=== PATIENT | male | born 1945 | race Caucasian/White ===

== ENCOUNTER 2022-11-02 16:49 | Emergency (ER) | payer MEDICARE, OTHER ==
[2022-11-02 17:03] VITALS: TEMP 98.3
[2022-11-02 19:30] LABS: Basophils # (A) 0.1 k/uL (0-0.2); Basophils % (A) 1 %; Eosinophils # (A) 0.6 k/uL (0-0.7); Eosinophils % (A) 6 %; HCT 36.2 % (39.0-53.0); HGB 11.5 gm/dL (13.0-17.5); Lymphocytes # (A) 2.1 k/uL (1.0-4.8); Lymphocytes % (A) 21 %; MCH 27.8 pg (25.0-35.0); MCHC 31.8 g/dL (31.0-37.0); Mean Platelet Volume 7.8; Monocytes # (A) 0.6 k/uL (0-1.0); Monocytes % (A) 6 %; Neutrophils # (A) 6.2 k/uL (1.3-7.7); Neutrophils % (A) 64 %; Platelet Count 497 k/uL (150-450); RBC 4.13 m/uL (4.30-5.90); RDW 15.4 % (11.5-15.5); WBC 9.7 k/uL (3.8-10.6)
[2022-11-02 19:37] LABS: MCV 87.7 fL (80.0-100.0)
[2022-11-02 19:43] VITALS: PULSE 92; RESP 18
[2022-11-02 19:43] LABS: INR 1.1 (<1.2); Partial Thromboplastin Time 28.1 sec (22.0-30.0); Prothrombin Time 11.2 sec (9.0-12.0)
[2022-11-02 20:06] LABS: ALT 23 U/L (4-49); AST 26 U/L (17-59); African American GFR (CKD) >90 (>60 ml/min/1.73 sqM); Albumin 3.5 g/dL (3.5-5.0); Alkaline Phosphatase 91 U/L (38-126); Anion Gap 10 mmol/L; Blood Urea Nitrogen 10 mg/dL (9-20); Calcium 9.6 mg/dL (8.4-10.2); Carbon Dioxide 28 mmol/L (22-30); Chloride 100 mmol/L (98-107); Glucose 105 mg/dL (74-99); Magnesium 1.8 mg/dL (1.6-2.3); Non-African American GFR(CKD) >90 (>60 ml/min/1.73 sqM); Potassium 4.9 mmol/L (3.5-5.1); Sodium 138 mmol/L (137-145); Total Bilirubin 0.4 mg/dL (0.2-1.3); Total Protein 6.8 g/dL (6.3-8.2)
--- NOTE | 2022-11-02 20:49 | CT ---
EXAMINATION TYPE: CT abdomen pelvis wo con DATE OF EXAM: 11/02/2022 COMPARISON: None HISTORY: nausea, vomiting, constipation x3 weeks CT DLP: 648.6 mGycm Automated exposure control for dose reduction was used. Images obtained from the diaphragm to the floor the pelvis with no contrast. There is subsegmental atelectasis at the lung bases. No pleural effusion. Heart size is normal. No pe ricardial effusion. Thoracic aorta is atheromatous. No pneumothorax. There is some mild fatty infiltration of the liver. Gallbladder is intact. There is small calcified g allstones. Spleen is intact. Stomach is intact. There is no pancreatic mass. There are some subtle hy podense foci in the right lobe of the liver. There is no adrenal mass. Kidneys have normal size. There is 3.7 cm cortical cyst anterior right kidn ey. There are numerous bilateral renal calculi measuring up to 7 mm. No hydronephrosis. Ureters are n ot dilated. Abdominal aorta is atheromatous. Appendix appears normal. There is no mesenteric edema. There are multiple sigmoid diverticula. There is some subtle fat stranding around the proximal sigmoi d colon. The bladder distends smoothly. No internal hernia. No free fluid in the pelvis. There is enl arged prostate that measures 5.4 cm. There is no mesenteric edema. No ascites or free air. No sign of a bowel obstruction. The lumbar vertebrae have fairly normal alignment. No compression fracture. There is some minimal bic oncave changes in the lumbar spine. This is consistent with some osteomalacia. There is a right hip n ailing noted. The pelvic ring is intact. The sacroiliac joints are intact. IMPRESSION: Numerous sigmoid diverticula without evidence of some mild diverticulitis proximal sigmoid colon. Normal appendix. Atherosclerotic vascular disease. Numerous nonobstructing bilateral renal calculi. Multiple hypodense liver lesions. Ultrasound recommended for further evaluation to confirm or exclude cysts.
[2022-11-02] MEDS ORDERED: AMOXIC-POT CLAV 875-125MG 1 EACH TAB PO STA (22:15)
--- NOTE | 2022-11-02 22:15 | ED ---
General Adult HPI - General Chief complaint: Weakness Stated complaint: abd pain/constipation Time Seen by Provider: 11/02/22 18:32 Source: patient, family Mode of arrival: wheelchair Limitations: no limitations - History of Present Illness Initial comments: This patient is a 77-year-old man who presents with complaint that he has not been feeling well lung back to 3 weeks now. He states that he has had some increasing fatigue. He has had some intermittent nausea and some episodes of vomiting. There has been a little bit of intermittent abdominal pain. Patient has not noted fever or chills. No hematemesis or coffee-ground emesis. He has not noted change in bowel movements or urination. Onset/Timin -: week(s) Location: abdomen Quality: dull Consistency: intermittent Improves with: none Worsens with: none Associated Symptoms: nausea/vomiting, weakness Treatments Prior to Arrival: none - Related Data Home Medications Medication Instructions Recorded Confirmed Pregabalin [Lyrica] 50 mg PO Q8H 11/02/22 11/02/22 Previous Rx's Medication Instructions Recorded Amoxic-Pot Clav 875-125Mg 1 tab PO Q12HR 1 Days #14 tab 11/02/22 [Augmentin 875-125] Allergies Allergy/AdvReac Type Severity Reaction Status Date / Time ceftriaxone [From Rocephin] Allergy Anaphylaxis Verified 11/02/22 20:48 ketorolac [From Toradol] Allergy Anaphylaxis Verified 11/02/22 20:48 Review of Systems ROS Statement: Those systems with pertinent positive or pertinent negative responses have been documented in the HPI. ROS Other: All systems not noted in ROS Statement are negative. Constitutional: Reports: weakness. Denies: fever, chills Respiratory: Denies: cough, dyspnea Cardiovascular: Denies: chest pain, palpitations, edema, syncope Gastrointestinal: Reports: abdominal pain, nausea, vomiting. Denies: diarrhea, constipation, hematemesis, melena, hematochezia Genitourinary: Denies: dysuria, hematuria, testicular pain, testicular mass Musculoskeletal: Denies: back pain Skin: Denies: rash Neurological: Denies: headache, weakness Past Medical History Past Medical History: Cancer, GERD/Reflux, Prostate Disorder Additional Past Medical History / Comment(s): diverticulitis History of Any Multi-Drug Resistant Organisms: None Reported Past Surgical History: Joint Replacement Additional Past Surgical History / Comment(s): hip Past Psychological History: No Psychological Hx Reported Smoking Status: Never smoker Past Alcohol Use History: None Reported Past Drug Use History: None Reported General Exam Limitations: no limitations General appearance: alert, in no apparent distress Head exam: Present: atraumatic, normocephalic Eye exam: Present: normal appearance. Absent: scleral icterus, conjunctival injection Neck exam: Present: normal inspection Respiratory exam: Present: normal lung sounds bilaterally. Absent: respiratory distress, wheezes, rales, rhonchi, stridor Cardiovascular Exam: Present: regular rate, normal rhythm, normal heart sounds. Absent: systolic murmur, diastolic murmur, rubs, gallop GI/Abdominal exam: Present: soft, tenderness (Mild left upper tenderness no kwame ound or guarding). Absent: distended, guarding, rebound, rigid, mass, pulsatile mass, hernia Extremities exam: Present: normal inspection, normal capillary refill. Absent: pedal edema, calf tenderness Back exam: Present: normal inspection. Absent: CVA tenderness (R), CVA tenderness (L) Neurological exam: Present: alert Skin exam: Present: warm, dry, intact, normal color. Absent: rash Course Vital Signs 11/02/22 11/02/22 11/02/22 16:57 19:41 22:19 Temperature 98.3 F Pulse Rate 101 H 92 92 Respiratory 20 18 18 Rate Blood Pressure 101/68 113/72 116/65 O2 Sat by Pulse 96 96 100 Oximetry Medical Decision Making - Medical Decision Making This patient is 77-year-old man with some intermittent abdominal symptoms as well as generalized weakness and fatigue going back a couple of weeks. The exam does show some left-sided tenderness more in the upper quadrant. Given this patient had computed tomography scan which does appear to show some mild diverticulitis, by my interpretation. Patient's offered admission but would like to try course of antibiotics. We discussed appropriate further care and follow-up as well as return parameters. Was pt. sent in by a medical professional or institution (, [facility], SENIOR ORACLE ADF DEVELOPER, urgent care, hospital, or [facility]...) When possible be specific @ -[No] Did you speak to anyone other than the patient for history (EMS, parent, family, police, friend...)? What history was obtained from this source @ -[No] Did you review nursing and triage notes (agree or disagree)? Why? @ -[I reviewed and agree with nursing and triage notes] Were old charts reviewed (outside hosp., previous admission, EMS record, old EKG, old radiological studies, urgent care reports/EKG's, [facility] records)? Report findings @ -[No old charts were reviewed] Differential Diagnosis (chest pain, altered mental status, abdominal pain women, abdominal pain men, vaginal bleeding, weakness, fever, dyspnea, syncope, headache, dizziness, GI bleed, back pain, seizure, CVA, palpatations, mental health, musculoskeletal)? @ -[Differential Abdominal Pain Men: Appendicitis, cholecystitis, diverticulosis, ischemic bowel, pancreatitis, hepatitis, UTI, gastroenteritis, AAA, incarcerated hernia, bowel obstruction, constipation, inflammatory bowel, hepatitis, peptic ulcer disease, splenic infarction, perforated viscus, testicular torsion, this is not meant to be an al l-inclusive list EKG interpreted by me (3pts min.). @ -[ X-rays interpreted by me (1pt min.). @ -[None done] CT interpreted by me (1pt min.). @ -As above U/S interpreted by me (1pt. min.). @ -[None done] What testing was considered but not performed or refused? (CT, X-rays, U/S, labs)? Why? @ -[None] What meds were considered but not given or refused? Why? @ -[None] Did you discuss the management of the patient with other professionals (professionals i.e. , PA, SENIOR ORACLE ADF DEVELOPER, lab, RT, psych nurse, social welfare research worker, copier repair technician, teacher, community cultural development officer, immigration case manager)? Give summary @ -[No] Was smoking cessation discussed for >3mins.? @ -[No] Was critical care preformed (if so, how long)? @ -[No] Were there social determinants of health that impacted care today? How? (Homelessness, low income, unemployed, alcoholism, drug addiction, transportation, low edu. Level, literacy, decrease access to med. care, [facility], rehab)? @ -[No] Was there de-escalation of care discussed even if they declined (Discuss DNR or withdrawal of care, Hospice)? DNR status @ -[No] What co-morbidities impacted this encounter? (DM, HTN, Smoking, COPD, CAD, Cancer, CVA, ARF, Chemo, Hep., AIDS, mental health diagnosis, sleep apnea, morbid obesity)? @ -[None] Was patient admitted / discharged? Hospital course, mention meds given and route, prescriptions, significant lab abnormalities, going to OR and other pertinent info. @ -[Discharged Undiagnosed new problem with uncertain prognosis? @ -[No] Drug Therapy requiring intensive monitoring for toxicity (Heparin, Nitro, Insulin, Cardizem)? @ -[No] Were any procedures done? @ -[No] Diagnosis/symptom? @ -[Acute diverticulitis, uncomplicated Acute, or Chronic, or Acute on Chronic? @ -[default] Uncomplicated (without systemic symptoms) or Complicated (systemic symptoms)? @ -[default] Side effects of treatment? @ -[No] Exacerbation, Progression, or Severe Exacerbation? @ -[No] Poses a threat to life or bodily function? How? (Chest pain, [place], PR, pneumonia, PE, COPD, DKA, ARF, appy, cholecystitis, CVA, Diverticulitis, Homicidal, Suicidal, threat to staff... and all critical care pts) @ -[No] - Lab Data Result diagrams: 11/02/22 18:55 11/02/22 18:55 Lab Results 11/02/22 11/02/22 11/02/22 Range/Units 18:55 18:55 18:55 WBC 9.7 (3.8-10.6) k/uL RBC 4.13 L (4.30-5.90) m/uL Hgb 11.5 L (13.0-17.5) gm/dL Hct 36.2 L (39.0-53.0) % MCV 87.7 D (80.0-100.0) fL MCH 27.8 (25.0-35.0) pg MCHC 31.8 (31.0-37.0) g/dL RDW 15.4 (11.5-15.5) % Plt Count 497 H (150-450) k/uL MPV 7.8 Neutrophils % 64 % Lymphocytes % 21 % Monocytes % 6 % Eosinophils % 6 % Basophils % 1 % Neutrophils # 6.2 (1.3-7.7) k/uL Lymphocytes # 2.1 (1.0-4.8) k/uL Monocytes # 0.6 (0-1.0) k/uL Eosinophils # 0.6 (0-0.7) k/uL Basophils # 0.1 (0-0.2) k/uL PT 11.2 (9.0-12.0) sec INR 1.1 (<1.2) APTT 28.1 (22.0-30.0) sec Sodium 138 (137-145) mmol/L Potassium 4.9 (3.5-5.1) mmol/L Chloride 100 (98-107) mmol/L Carbon Dioxide 28 (22-30) mmol/L Anion Gap 10 mmol/L BUN 10 (9-20) mg/dL Creatinine 0.72 (0.66-1.25) mg/dL Est GFR (CKD-EPI)AfAm >90 (>60 ml/min/1.73 sqM) Est GFR (CKD-EPI)NonAf >90 (>60 ml/min/1.73 sqM) Glucose 105 H (74-99) mg/dL Plasma Lactic Acid Mark Anthony (0.7-2.0) mmol/L Calcium 9.6 (8.4-10.2) mg/dL Magnesium 1.8 (1.6-2.3) mg/dL Total Bilirubin 0.4 (0.2-1.3) mg/dL AST 26 (17-59) U/L ALT 23 (4-49) U/L Alkaline Phosphatase 91 (38-126) U/L Troponin I (0.000-0.034) ng/mL Total Protein 6.8 (6.3-8.2) g/dL Albumin 3.5 (3.5-5.0) g/dL TSH 0.834 (0.465-4.680) mIU/L 11/02/22 11/02/22 Range/Units 18:55 18:55 WBC (3.8-10.6) k/uL RBC (4.30-5.90) m/uL Hgb (13.0-17.5) gm/dL Hct (39.0-53.0) % MCV (80.0-100.0) fL MCH (25.0-35.0) pg MCHC (31.0-37.0) g/dL RDW (11.5-15.5) % Plt Count (150-450) k/uL MPV Neutrophils % % Lymphocytes % % Monocytes % % Eosinophils % % Basophils % % Neutrophils # (1.3-7.7) k/uL Lymphocytes # (1.0-4.8) k/uL Monocytes # (0-1.0) k/uL Eosinophils # (0-0.7) k/uL Basophils # (0-0.2) k/uL PT (9.0-12.0) sec INR (<1.2) APTT (22.0-30.0) sec Sodium (137-145) mmol/L Potassium (3.5-5.1) mmol/L Chloride (98-107) mmol/L Carbon Dioxide (22-30) mmol/L Anion Gap mmol/L BUN (9-20) mg/dL Creatinine (0.66-1.25) mg/dL Est GFR (CKD-EPI)AfAm (>60 ml/min/1.73 sqM) Est GFR (CKD-EPI)NonAf (>60 ml/min/1.73 sqM) Glucose (74-99) mg/dL Plasma Lactic Acid Mark Anthony 1.3 (0.7-2.0) mmol/L Calcium (8.4-10.2) mg/dL Magnesium (1.6-2.3) mg/dL Total Bilirubin (0.2-1.3) mg/dL AST (17-59) U/L ALT (4-49) U/L Alkaline Phosphatase (38-126) U/L Troponin I <0.012 (0.000-0.034) ng/mL Total Protein (6.3-8.2) g/dL Albumin (3.5-5.0) g/dL TSH (0.465-4.680) mIU/L Disposition Clinical Impression: Diverticulitis Disposition: HOME SELF-CARE Condition: Good Prescriptions: Amoxic-Pot Clav 875-125Mg [Augmentin 875-125] 1 tab PO Q12HR 1 Days #14 tab Is patient prescribed a controlled substance at d/c from ED?: No Referrals: Volodymyr Benitez MD [Primary Care Provider] - 1-2 days Laxmi Ruiz MD [STAFF PHYSICIAN] - 1-2 days
[2022-11-02 22:28] VITALS: BP 116/65
== END 2022-11-02 22:55 | disposition home or self-care (01) ==
LOC: EC 16:49
DX: K57.30 Diverticulosis of large intestine without perforation or abscess without bleeding (principal); Z88.1 Allergy status to other antibiotic agents; Z88.6 Allergy status to analgesic agent
CPT/HCPCS: 36415; 74176; 80053; 83605; 83735; 84443; 84484; 85025; 85610; 85730; 87040; 93005; 99285

== ENCOUNTER 2023-05-02 08:32 | Emergency (ER) | payer MEDICARE, OTHER ==
[2023-05-02] MEDS ORDERED: SODIUM CHLORIDE 0.9% 1,000 ML IV STA (09:13)
[2023-05-02 09:48] LABS: Basophils # (A) 0.1 k/uL (0-0.2); Basophils % (A) 1 %; Eosinophils # (A) 0.7 k/uL (0-0.7); Eosinophils % (A) 9 %; HCT 41.2 % (39.0-53.0); HGB 13.6 gm/dL (13.0-17.5); Lymphocytes # (A) 1.8 k/uL (1.0-4.8); Lymphocytes % (A) 22 %; MCH 30.4 pg (25.0-35.0); MCHC 33.1 g/dL (31.0-37.0); Mean Platelet Volume 8.2; Monocytes # (A) 0.6 k/uL (0-1.0); Monocytes % (A) 7 %; Neutrophils % (A) 60 %; Platelet Count 210 k/uL (150-450); RBC 4.48 m/uL (4.30-5.90); RDW 14.8 % (11.5-15.5); WBC 8.3 k/uL (3.8-10.6)
[2023-05-02 09:55] LABS: ALT 14 U/L (4-49); AST 19 U/L (17-59); African American GFR (CKD) >90 (>60 ml/min/1.73 sqM); Albumin 3.5 g/dL (3.5-5.0); Alkaline Phosphatase 103 U/L (38-126); Anion Gap 6 mmol/L; Blood Urea Nitrogen 21 mg/dL (9-20); Calcium 9.3 mg/dL (8.4-10.2); Carbon Dioxide 29 mmol/L (22-30); Chloride 107 mmol/L (98-107); Glucose 139 mg/dL (74-99); Magnesium 1.7 mg/dL (1.6-2.3); Non-African American GFR(CKD) 83 (>60 ml/min/1.73 sqM); Sodium 142 mmol/L (137-145); Total Bilirubin 0.4 mg/dL (0.2-1.3); Total Protein 6.2 g/dL (6.3-8.2)
[2023-05-02 09:59] LABS: INR 0.9 (<1.2); Partial Thromboplastin Time 27.3 sec (22.0-30.0)
--- NOTE | 2023-05-02 09:59 | ED ---
General Adult HPI - General Chief complaint: Weakness Stated complaint: Abscess L Side, poss Infection Time Seen by Provider: 05/02/23 08:43 Source: patient, RN notes reviewed, old records reviewed Mode of arrival: ambulatory Limitations: no limitations - History of Present Illness Initial comments: Patient is a 77-year-old male who presents emergency Department complaining of weakness. Brought in by family members. Concern for possible worsening in fection. Currently being treated with clindamycin for a left lower tooth infection that is requiring a root canal. They're worried for possible sepsis. Patient has history of prostate cancer currently not being treated, GERD, diverticulosis. Has no symptoms at this time other than generalized body aches and weakness. No urinary complaints. No diarrhea. No abdominal pain. No nausea or vomiting. No chest pain or shortness of breath. Patient episode this morning where he was more confused which worried the patient's daughter which is why he presents for further evaluation. Confusion has resolved. Currently at his baseline mental status. Not on blood thinners. No recent trauma or falls. Presents for further evaluation at this time. Tooth infection as left lower jaw. Symptoms have been somewhat ongoing since Monday. Is currently Monday. - Related Data Home Medications Medication Instructions Recorded Confirmed Pregabalin [Lyrica] 150 mg PO TID 05/02/23 05/02/23 Sennosides/Docusate Sodium [Senna 2 tab PO BID 05/02/23 05/02/23 Plus 8.6-50 mg Tablet] tiZANidine HCL [Zanaflex] 2 mg PO Q6H PRN 05/02/23 05/02/23 Previous Rx's Medication Instructions Recorded Amoxic-Pot Clav 875-125Mg 1 tab PO Q12HR 10 Days #20 tab 05/02/23 [Augmentin 875-125] Allergies Allergy/AdvReac Type Severity Reaction Status Date / Time ceftriaxone [From Rocephin] Allergy Anaphylaxis Verified 05/02/23 10:33 ketorolac [From Toradol] Allergy Anaphylaxis Verified 05/02/23 10:33 Review of Systems ROS Statement: Those systems with pertinent positive or pertinent negative responses have been documented in the HPI. Review of Systems: CONST: Denies fever EYES: Denies blurry vision ENT: Denies nasal congestion C/V: Denies Chest pain RESP: Denies shortness of breath GI: Denies abdominal pain : Denies dysuria SKIN: Denies rash. MSK: Endorses generalized joint pain NEURO: Denies headache ROS Other: All systems not noted in ROS Statement are negative. Past Medical History Past Medical History: Cancer, GERD/Reflux, Prostate Disorder Additional Past Medical History / Comment(s): diverticulitis History of Any Multi-Drug Resistant Organisms: None Reported Past Surgical History: Joint Replacement Additional Past Surgical History / Comment(s): hip Past Psychological History: No Psychological Hx Reported Smoking Status: Never smoker Past Alcohol Use History: None Reported Past Drug Use History: None Reported General Exam - General Exam Comments Initial Comments: General: Appears in no acute distress. HEAD: Normal with no signs of head trauma. EYES: PERRLA, EOMI, conjunctiva normal, no discharge. Pupils 2-3 mm and equal bilaterally. ENT: Hearing grossly intact, normal oropharynx. No floor the mouth swelling. Minimal gum line swelling with mild erythema around the posterior left inferior molar. No obvious fluctuance palpated. No obvious abscess. Uvula is midline. No posterior oropharyngeal edema. No stridor. RESPIRATORY: Clear breath sounds bilaterally. No wheezes, rales, or rhonchi. C/V: Regular rate and rhythm. S1 and S2 auscultated, no edema, peripheral pulses 2+ and intact throughout ABD: Abd is soft, nontender, nondistended EXT: Normal range of motion, no obvious deformity SKIN: No rashes or lesions observed on exposed skin. NEURO: Alert and oriented x 4. Cranial nerves II-XII intact. No focal sensory or strength deficits. NIH of 0. GCS of 15. Limitations: no limitations Course Vital Signs 05/02/23 05/02/23 05/02/23 08:38 10:03 11:12 Temperature 98.4 F 97.7 F Pulse Rate 96 87 75 Respiratory 20 17 17 Rate Blood Pressure 130/79 119/78 124/70 O2 Sat by Pulse 94 L 95 95 Oximetry 05/02/23 11:52 Temperature Pulse Rate 77 Respiratory 20 Rate Blood Pressure 124/78 O2 Sat by Pulse 97 Oximetry Medical Decision Making - Medical Decision Making Was pt. sent in by a medical professional or institution (, PA, VEHICLE GLASS TECHNICIAN, urgent care, hospital, or prison...) When possible be specific @ -No Did you speak to anyone other than the patient for history (EMS, parent, family, police, friend...)? What history was obtained from this source @ -Patient's daughter who is at bedside who is the primary historian for the events that occurred this morning as well as patient's recent past medical history. Did you review nursing and triage notes (agree or disagree)? Why? @ -I reviewed and agree with nursing and triage notes Were old charts reviewed (outside hosp., previous admission, EMS record, old EKG, old radiological studies, urgent care reports/EKG's, prison records)? Report findings @ -Old charts reviewed. Differential Diagnosis (chest pain, altered mental status, abdominal pain women, abdominal pain men, vaginal bleeding, weakness, fever, dyspnea, syncope, headache, dizziness, GI bleed, back pain, seizure, CVA, palpatations, mental health, musculoskeletal)? @ -Differential Weakness: Hypoglycemia, shock, sepsis, hyponatremia, anemia, infection, ME, ETOH, adverse medicine reaction, overdose, stroke, this is not meant to be an all-inclusive list. EKG interpreted by me (3pts min.). @ -As above X-rays interpreted by me (1pt min.). @ -Chest x-ray reveals no obvious acute cardio pulmonary process. CT interpreted by me (1pt min.). @ -CT brain reveals no obvious acute intracranial process. U/S interpreted by me (1pt. min.). @ -None done What testing was considered but not performed or refused? (CT, X-rays, U/S, labs)? Why? @ -None What meds were considered but not given or refused? Why? @ -None Did you discuss the management of the patient with other professionals (professionals i.e. , PA, VEHICLE GLASS TECHNICIAN, lab, RT, psych nurse, social sciences research scientist, financial aid, teacher, traffic division commanding officer, case worker)? Give summary @ -No Was smoking cessation discussed for >3mins.? @ -No Was critical care preformed (if so, how long)? @ -No Were there social determinants of health that impacted care today? How? (Homelessness, low income, unemployed, alcoholism, drug addiction, transportation, low edu. Level, literacy, decrease access to med. care, snf, rehab)? @ -No Was there de-escalation of care discussed even if they declined (Discuss DNR or withdrawal of care, Hospice)? DNR status @ -No What co-morbidities impacted this encounter? (DM, HTN, Smoking, COPD, CAD, Cancer, CVA, ARF, Chemo, Hep., AIDS, mental health diagnosis, sleep apnea, morbid obesity)? @ -None Was patient admitted / discharged? Hospital course, mention meds given and route, prescriptions, significant lab abnormalities, going to OR and other pertinent info. @ -Based on the patient's presentation and physical exam, I am concerned for drugs weakness of the patient. Occurred be related to his tooth but also possible other infection. We will obtain weakness labs, CT brain, chest x-ray as well as vital signs. Vital signs within acceptable limits. Patient as well as his daughter were in agreement with the plan. Patient be given IV fluids. EKG showed no signs of ischemia.Patient's imaging negative for any obvious acute process. Patient's laboratory studies also within acceptable limits except for borderline UTI with positive leukocyte esterase as well as WBCs. Discussed the workup with patient as well as his daughter. Remainder of the labs within acceptable limits. I do believe it is safe for him to be discharged home but we will switch to a different antibiotic to cover both intraoral infection as well as UTI. Patient patient's arm in agreement this plan. Strict return precautions discussed. Switch to Augmentin. I will provide the patient with a prescription for Augmentin. I instructed the patient to follow up with their PCP in the next 1-3 days. I explained that the patient should return to the emergency department if they experience any worsening symptoms. Strict return precautions were discussed with the patient. The patient expressed understanding of these instructions. I answered all questions that the patient had. The patient was discharged home in good condition with their prescriptions and follow up information. Undiagnosed new problem with uncertain prognosis? @ -No Drug Therapy requiring intensive monitoring for toxicity (Heparin, Nitro, Insulin, Cardizem)? @ -No Were any procedures done? @ -No Diagnosis/symptom? @ -Toothache, UTI Acute, or Chronic, or Acute on Chronic? @ -Acute Uncomplicated (without systemic symptoms) or Complicated (systemic symptoms)? @ -Complicated Side effects of treatment? @ -none Exacerbation, Progression, or Severe Exacerbation] @ -no Poses a threat to life or bodily function? @ -Unlikely - Lab Data Result diagrams: 05/02/23 09:21 05/02/23 09:21 Lab Results 05/02/23 05/02/23 05/02/23 Range/Units 09:21 09:21 09:21 WBC 8.3 (3.8-10.6) k/uL RBC 4.48 (4.30-5.90) m/uL Hgb 13.6 (13.0-17.5) gm/dL Hct 41.2 (39.0-53.0) % MCV 92.0 (80.0-100.0) fL MCH 30.4 (25.0-35.0) pg MCHC 33.1 (31.0-37.0) g/dL RDW 14.8 (11.5-15.5) % Plt Count 210 (150-450) k/uL MPV 8.2 Neutrophils % 60 % Lymphocytes % 22 % Monocytes % 7 % Eosinophils % 9 % Basophils % 1 % Neutrophils # 5.0 (1.3-7.7) k/uL Lymphocytes # 1.8 (1.0-4.8) k/uL Monocytes # 0.6 (0-1.0) k/uL Eosinophils # 0.7 (0-0.7) k/uL Basophils # 0.1 (0-0.2) k/uL PT 10.0 (9.0-12.0) sec INR 0.9 (<1.2) APTT 27.3 (22.0-30.0) sec Sodium (137-145) mmol/L Potassium (3.5-5.1) mmol/L Chloride (98-107) mmol/L Carbon Dioxide (22-30) mmol/L Anion Gap mmol/L BUN (9-20) mg/dL Creatinine (0.66-1.25) mg/dL Est GFR (CKD-EPI)AfAm (>60 ml/min/1.73 sqM) Est GFR (CKD-EPI)NonAf (>60 ml/min/1.73 sqM) Glucose (74-99) mg/dL Plasma Lactic Acid Mark Anthony (0.7-2.0) mmol/L Calcium (8.4-10.2) mg/dL Magnesium (1.6-2.3) mg/dL Total Bilirubin (0.2-1.3) mg/dL AST (17-59) U/L ALT (4-49) U/L Alkaline Phosphatase (38-126) U/L C-Reactive Protein (<1.0) mg/dL Total Protein (6.3-8.2) g/dL Albumin (3.5-5.0) g/dL Urine Color Yellow Urine Appearance Clear (Clear) Urine pH 5.5 (5.0-8.0) Ur Specific Bassett 1.022 (1.001-1.035) Urine Protein Trace H (Negative) Urine Glucose (UA) Negative (Negative) Urine Ketones Negative (Negative) Urine Blood Negative (Negative) Urine Nitrite Negative (Negative) Urine Bilirubin Negative (Negative) Urine Urobilinogen <2.0 (<2.0) mg/dL Ur Leukocyte Esterase Trace H (Negative) Urine RBC 2 (0-5) /hpf Urine WBC 6 H (0-5) /hpf Ur Squamous Epith Cells <1 (0-4) /hpf Urine Mucus Rare H (None) /hpf Influenza Type A (PCR) (Not Detectd) Influenza Type B (PCR) (Not Detectd) RSV (PCR) (Not Detectd) SARS-CoV-2 (PCR) (Not Detectd) 05/02/23 05/02/23 05/02/23 Range/Units 09:21 09:21 09:21 WBC (3.8-10.6) k/uL RBC (4.30-5.90) m/uL Hgb (13.0-17.5) gm/dL Hct (39.0-53.0) % MCV (80.0-100.0) fL MCH (25.0-35.0) pg MCHC (31.0-37.0) g/dL RDW (11.5-15.5) % Plt Count (150-450) k/uL MPV Neutrophils % % Lymphocytes % % Monocytes % % Eosinophils % % Basophils % % Neutrophils # (1.3-7.7) k/uL Lymphocytes # (1.0-4.8) k/uL Monocytes # (0-1.0) k/uL Eosinophils # (0-0.7) k/uL Basophils # (0-0.2) k/uL PT (9.0-12.0) sec INR (<1.2) APTT (22.0-30.0) sec Sodium 142 (137-145) mmol/L Potassium 4.0 (3.5-5.1) mmol/L Chloride 107 (98-107) mmol/L Carbon Dioxide 29 (22-30) mmol/L Anion Gap 6 mmol/L BUN 21 H (9-20) mg/dL Creatinine 0.90 (0.66-1.25) mg/dL Est GFR (CKD-EPI)AfAm >90 (>60 ml/min/1.73 sqM) Est GFR (CKD-EPI)NonAf 83 (>60 ml/min/1.73 sqM) Glucose 139 H (74-99) mg/dL Plasma Lactic Acid Mark Anthony 1.2 (0.7-2.0) mmol/L Calcium 9.3 (8.4-10.2) mg/dL Magnesium 1.7 (1.6-2.3) mg/dL Total Bilirubin 0.4 (0.2-1.3) mg/dL AST 19 (17-59) U/L ALT 14 (4-49) U/L Alkaline Phosphatase 103 (38-126) U/L C-Reactive Protein 2.7 H (<1.0) mg/dL Total Protein 6.2 L (6.3-8.2) g/dL Albumin 3.5 (3.5-5.0) g/dL Urine Color Urine Appearance (Clear) Urine pH (5.0-8.0) Ur Specific Bassett (1.001-1.035) Urine Protein (Negative) Urine Glucose (UA) (Negative) Urine Ketones (Negative) Urine Blood (Negative) Urine Nitrite (Negative) Urine Bilirubin (Negative) Urine Urobilinogen (<2.0) mg/dL Ur Leukocyte Esterase (Negative) Urine RBC (0-5) /hpf Urine WBC (0-5) /hpf Ur Squamous Epith Cells (0-4) /hpf Urine Mucus (None) /hpf Influenza Type A (PCR) Not Detected (Not Detectd) Influenza Type B (PCR) Not Detected (Not Detectd) RSV (PCR) Not Detected (Not Detectd) SARS-CoV-2 (PCR) Not Detected (Not Detectd) - EKG Data -: EKG Interpreted by Me EKG Comments: 12-lead Electrocardiogram Interpretation Note EKG was reviewed and interpreted by myself. 12-lead ECG performed at 0941 is interpreted by me as revealing normal sinus rhythm at a rate of 84 beats per minute. Left axis deviation. ME interval is 160 ms, QRS duration is 95 ms, QTc is 398 ms.. There were no ST or T wave abnormalities to suggest myocardial ischemia or injury. R wave progression across the precordium was satisfactory. By my interpretation this EKG is non-diagnostic for acute ischemia. Disposition Clinical Impression: Toothache, UTI (urinary tract infection) Disposition: HOME SELF-CARE Condition: Good Prescriptions: Amoxic-Pot Clav 875-125Mg [Augmentin 875-125] 1 tab PO Q12HR 10 Days #20 tab Is patient prescribed a controlled substance at d/c from ED?: No Referrals: Nonstaff,Physician [Primary Care Provider] - 1-2 days Time of Disposition: 11:29
[2023-05-02 10:06] VITALS: TEMP 97.7
[2023-05-02 10:15] LABS: Appearance,Urine Clear (Clear); Bilirubin,Urine Negative (Negative); Blood,Urine Negative (Negative); Color,Urine Yellow; Glucose,Urine (UA) Negative (Negative); Ketones,Urine Negative (Negative); Leukocyte Esterase,Urine Trace (Negative); Mucus,Urine Rare /hpf; Nitrite,Urine Negative (Negative); PH, Urine 5.5 (5.0-8.0); Protein,Urine Trace (Negative); RBC,Urine 2 /hpf (0-5); Specific Gravity,Urine 1.022 (1.001-1.035); Squamous Epithelial Cell,Urine <1 /hpf (0-4); Urobilinogen,Urine <2.0 mg/dL (<2.0); WBC,Urine 6 /hpf (0-5)
--- NOTE | 2023-05-02 10:20 | CT ---
EXAMINATION TYPE: CT brain wo con DATE OF EXAM: 05/02/2023 COMPARISON: None HISTORY: confusion CT DLP: 1083.[address] of the brain was performed. The ventricles, basal cisterns and sulci overlying the cerebral convexities demonstrate mild enlargem ent. There is no evidence for intracranial hemorrhage or sulcal effacement. There is decreased attenuation about the periventricular white matter and deep white matter of both c erebral hemispheres, compatible with chronic small vessel ischemia. Differential diagnosis does inclu de demyelination. No mass effects are seen.No midline shift. Osseous calvarium is intact. If symptoms persist consider MRI. IMPRESSION: 1. Age related atrophic and chronic small vessel ischemic change without acute intracranial process s een at this time.
[2023-05-02 10:29] LABS: C Reactive Protein 2.7 mg/dL (<1.0)
--- NOTE | 2023-05-02 10:37 | XR ---
EXAMINATION TYPE: XR chest 2V DATE OF EXAM: 05/02/2023 COMPARISON: NONE HISTORY: Shortness of breath TECHNIQUE: Frontal and lateral views of the chest are obtained. FINDINGS: Scattered senescent parenchymal changes noted. Hyperinflation compatible with COPD. No evidence for infiltrate. No evidence for atelectasis. Heart size is stable. Mediastinal structures are stable and grossly unremarkable. No evidence for hilar prominence. Degenerative changes dorsal spine. IMPRESSION: 1. No evidence for acute pulmonary disease.
[2023-05-02] MEDS ORDERED: AMOXIC-POT CLAV 875-125MG 1 EACH TAB PO STA (11:40)
[2023-05-02 12:01] VITALS: BP 124/78; PULSE 77; RESP 20
== END 2023-05-02 11:53 | disposition home or self-care (01) ==
LOC: EC 08:32
DX: K08.89 Other specified disorders of teeth and supporting structures (principal); N39.0 Urinary tract infection, site not specified; I67.82 Cerebral ischemia; Z88.1 Allergy status to other antibiotic agents; Z88.8 Allergy status to other drugs, medicaments and biological substances; Z20.822 Contact with and (suspected) exposure to COVID-19
CPT/HCPCS: 36415; 70450; 71046; 80053; 81001; 83605; 83735; 85025; 85610; 85730; 86140; 87086; 87636; 93005; 96360; 99285

== ENCOUNTER 2023-09-30 20:29 | Observation (INO) | payer MEDICARE, OTHER ==
[2023-09-30 21:21] LABS: HCT 40.3 % (39.0-53.0); HGB 13.4 gm/dL (13.0-17.5); MCH 31.7 pg (25.0-35.0); MCHC 33.3 g/dL (31.0-37.0); MCV 95.3 fL (80.0-100.0); Mean Platelet Volume 8.1; Platelet Count 237 k/uL (150-450); RBC 4.23 m/uL (4.30-5.90); RDW 13.5 % (11.5-15.5); WBC 9.9 k/uL (3.8-10.6)
[2023-09-30 21:26] LABS: African American GFR (CKD) >90 (>60 ml/min/1.73 sqM); Anion Gap 3 mmol/L; Blood Urea Nitrogen 21 mg/dL (9-20); Calcium 9.3 mg/dL (8.4-10.2); Carbon Dioxide 28 mmol/L (22-30); Chloride 111 mmol/L (98-107); Glucose 198 mg/dL (74-99); Non-African American GFR(CKD) 83 (>60 ml/min/1.73 sqM); Potassium 3.8 mmol/L (3.5-5.1); Sodium 142 mmol/L (137-145)
--- NOTE | 2023-09-30 21:36 | ED ---
General Adult HPI - General Chief complaint: Altered Mental Status Stated complaint: Transfer from [facility] Time Seen by Provider: 09/30/23 20:37 Source: patient, family, RN notes reviewed, old records reviewed Mode of arrival: wheelchair Limitations: no limitations - History of Present Illness Initial comments: Patient is a 78-year-old male who presents emergency department for evaluation by neurology. Was originally going to be a transfer from [facility] however he left AMA with his family and drove via private vehicle rather than EMS to our hospital. Workup at the outside facility was unremarkable. Patient originally presented for a fall at home. Believes he took too much of his normal Flexeril medications when this happens. They were concerned because falls have been more frequent, as well as confusion as well as concern for poss ible worsening dementia. Patient's family member, his daughter is the primary historian for the patient. CT imaging at the outside facility showed no obvious injuries of the head or neck. Patient's laboratory studies were unremarkable. Urinalysis is the only thing that is currently pending. Patient over the last 6 months has been dealing with intermittent tooth infections as well as chronic r ight shoulder pain. Presents for admission for neurology evaluation. Per daughter, patient is below his baseline and seems to have waxing waning symptoms intermittently.Family states that today's episode could have been caused by patient taking extra doses of his Flexeril. - Related Data Home Medications Medication Instructions Recorded Confirmed Pregabalin [Lyrica] 150 mg PO HS 05/02/23 09/30/23 Ibuprofen [Motrin Ib] 200 mg PO TID PRN 09/30/23 09/30/23 Unknown Bp Med 1 tab PO DIRECTED PRN 09/30/23 09/30/23 methocarbamoL [Robaxin-750] 750 mg PO DIRECTED 09/30/23 09/30/23 Allergies Allergy/AdvReac Type Severity Reaction Status Date / Time ceftriaxone [From Rocephin] Allergy Anaphylaxis Verified 09/30/23 21:09 ketorolac [From Toradol] Allergy Anaphylaxis Verified 09/30/23 21:09 Review of Systems ROS Statement: Those systems with pertinent positive or pertinent negative responses have been documented in the HPI. Review of Systems: CONST: Denies fever EYES: Denies blurry vision ENT: Denies nasal congestion C/V: Denies Chest pain RESP: Denies shortness of breath GI: Denies abdominal pain : Denies dysuria SKIN: Denies rash. MSK: Denies joint pain. NEURO: Denies headache ROS Other: All systems not noted in ROS Statement are negative. Past Medical History Past Medical History: Cancer, GERD/Reflux, Prostate Disorder Additional Past Medical History / Comment(s): diverticulitis History of Any Multi-Drug Resistant Organisms: None Reported Past Surgical History: Joint Replacement Additional Past Surgical History / Comment(s): hip Past Psychological History: No Psychological Hx Reported Smoking Status: Current every day smoker Past Alcohol Use History: None Reported Past Drug Use History: None Reported General Exam - General Exam Comments Initial Comments: General: Appears in no acute distress. HEAD: Normal with no signs of head trauma. EYES: PERRLA, EOMI, conjunctiva normal, no discharge. Pulls are 3 mm and equal bilaterally. ENT: Hearing grossly intact, normal oropharynx. RESPIRATORY: Clear breath sounds bilaterally. No wheezes, rales, or rhonchi. C/V: Regular rate and rhythm. S1 and S2 auscultated, no edema, peripheral pulses 2+ and intact throughout ABD: Abd is soft, nontender, nondistended EXT: Normal range of motion, no obvious deformity SKIN: No rashes or lesions observed on exposed skin. NEURO: Alert and oriented x 3 at this time. No obvious focal deficits. Cranial nerves II through XII are intact. Limitations: no limitations Course Vital Signs 09/30/23 20:34 Temperature 97.3 F L Pulse Rate 97 Respiratory 18 Rate Blood Pressure 137/51 O2 Sat by Pulse 96 Oximetry Medical Decision Making - Medical Decision Making Was pt. sent in by a medical professional or institution (, PA, BUSINESS DEAN, urgent care, hospital, or prison...) When possible be specific @ -Transferred via private vehicle from [facility] Did you speak to anyone other than the patient for history (EMS, parent, family, police, friend...)? What history was obtained from this source @ -Patient's daughter is the primary historian for the patient. Did you review nursing and triage notes (agree or disagree)? Why? @ -I reviewed and agree with nursing and triage notes Were old charts reviewed (outside hosp., previous admission, EMS record, old EKG, old radiological studies, urgent care reports/EKG's, prison records)? Report findings @ -Old charts reviewed Differential Diagnosis (chest pain, altered mental status, abdominal pain women, abdominal pain men, vaginal bleeding, weakness, fever, dyspnea, syncope, headache, dizziness, GI bleed, back pain, seizure, CVA, palpatations, mental health, musculoskeletal)? @ -Differential Altered Mental Status: Hypoglycemia, DKA, hypercapnia, ETOH, overdose, CO poisoning, trauma, myxedema coma, HTN encephalopathy, infection, encephalitis, psychosis, intercranial hemorrhage, hepatic encephalopathy, meningitis, CVA, this is not meant to be an all-inclusive list EKG interpreted by me (3pts min.). @ -As above X-rays interpreted by me (1pt min.). @ -X-ray reveals no obvious acute process. CT interpreted by me (1pt min.). @ -None done U/S interpreted by me (1pt. min.). @ -None done What testing was considered but not performed or refused? (CT, X-rays, U/S, labs)? Why? @ -None What meds were considered but not given or refused? Why? @ -None Did you discuss the management of the patient with other professionals (professionals i.e. , PA, BUSINESS DEAN, lab, RT, psych nurse, director social, merchant tailor, teacher, corporate trust officer, telehealth case manager)? Give summary @ -I discussed with Dr. Jarvis who accepted the admission. Was smoking cessation discussed for >3mins.? @ -No Was critical care preformed (if so, how long)? @ -No Were there social determinants of health that impacted care today? How? (Homelessness, low income, unemployed, alcoholism, drug addiction, transportation, low edu. Level, literacy, decrease access to med. care, senior care, rehab)? @ -No Was there de-escalation of care discussed even if they declined (Discuss DNR or withdrawal of care, Hospice)? DNR status @ -No What co-morbidities impacted this encounter? (DM, HTN, Smoking, COPD, CAD, Cancer, CVA, ARF, Chemo, Hep., AIDS, mental health diagnosis, sleep apnea, morbid obesity)? @ -None Was patient admitted / discharged? Hospital course, mention meds given and route, prescriptions, significant lab abnormalities, going to OR and other pertinent info. @ -Patient presents for altered mental status. Seems to be somewhat progressive over the last few months. Had a fall today as well. Was transferred for neurology evaluation. Workup at the outside facility was unremarkable. We will repeat basic labs here as well as obtain a chest x-ray wh ich was not done. We also obtain a urinalysis. Patient's family in agreement this plan. Vital signs within acceptable limits. Patient appears to be near his baseline at this time. Laboratory studies unremarkable. EKG shows no signs of acute ischemia. CT brain, C-spine obtained at the outside facility was unremarkable. No obvious acute injury. Images uploaded to our system. Chest x-ray unremarkable. Patient's family would like the patient evaluated for possible placement for long-term care as they are concerned over his weakness and frequent falls as well as possibly dementia. Patient lives alone. They believe that it is unsafe for him to be discharged home. At this time, patient will be admitted for placement and neuro eval. Neurology consulted. I spoke with Dr. Jarvis of [facility] who accepted the admission. Undiagnosed new problem with uncertain prognosis? @ -No Drug Therapy requiring intensive monitoring for toxicity (Heparin, Nitro, Insulin, Cardizem)? @ -No Were any procedures done? @ -No Diagnosis/symptom? @ -debility, weakness, confusion Acute, or Chronic, or Acute on Chronic? @ -Acute on chronic Uncomplicated (without systemic symptoms) or Complicated (systemic symptoms)? @ -Complicated Side effects of treatment? @ -No Exacerbation, Progression, or Severe Exacerbation? @ -No Poses a threat to life or bodily function? How? (Chest pain, [place], [place], pneumonia, PE, COPD, DKA, ARF, appy, cholecystitis, CVA, Diverticulitis, Homicidal, Suicidal, threat to staff... and all critical care pts) @ -Possibly, yes - Lab Data Result diagrams: 09/30/23 20:55 09/30/23 20:55 Lab Results 09/30/23 09/30/23 Range/Units 20:55 20:55 WBC 9.9 (3.8-10.6) k/uL RBC 4.23 L (4.30-5.90) m/uL Hgb 13.4 (13.0-17.5) gm/dL Hct 40.3 (39.0-53.0) % MCV 95.3 (80.0-100.0) fL MCH 31.7 (25.0-35.0) pg MCHC 33.3 (31.0-37.0) g/dL RDW 13.5 (11.5-15.5) % Plt Count 237 (150-450) k/uL MPV 8.1 Sodium 142 (137-145) mmol/L Potassium 3.8 (3.5-5.1) mmol/L Chloride 111 H (98-107) mmol/L Carbon Dioxide 28 (22-30) mmol/L Anion Gap 3 mmol/L BUN 21 H (9-20) mg/dL Creatinine 0.88 (0.66-1.25) mg/dL Est GFR (CKD-EPI)AfAm >90 (>60 ml/min/1.73 sqM) Est GFR (CKD-EPI)NonAf 83 (>60 ml/min/1.73 sqM) Glucose 198 H (74-99) mg/dL Calcium 9.3 (8.4-10.2) mg/dL - EKG Data -: EKG Interpreted by Me EKG Comments: 12-lead Electrocardiogram Interpretation Note EKG was reviewed and interpreted by myself. 12-lead ECG performed at 2044 is interpreted by me as revealing normal sinus rhythm at a rate of 97 beats per minute. [place] is leftward deviated. OR interval is 146 ms, QRS duration is 90 ms, QTc is 387 ms.. There were no ST or T wave abnormalities to suggest myocardial ischemia or injury. R wave progression across the precordium was satisfactory. By my interpretation this EKG is non-diagnostic for acute ischemi a. Disposition Clinical Impression: Weakness, Debility, Confusion Disposition: ADMITTED IP TO THIS HOSP Condition: Stable Referrals: None,Stated [Primary Care Provider] - 1-2 days Time of Disposition: 22:30
--- NOTE | 2023-09-30 22:13 | XR ---
EXAMINATION TYPE: XR chest 2V DATE OF EXAM: 09/30/2023 9:36 PM CLINICAL INDICATION:Male, 78 years old with history of fall; COMPARISON: Chest radiographs from 05/02/2023 TECHNIQUE: XR chest 2V Frontal and lateral views of the chest. FINDINGS: Lungs/Pleura: There is no evidence of pleural effusion, focal consolidation, or pneumothorax. Pulmonary vascularity: Unremarkable. Heart/mediastinum: Cardiomediastinal silhouette is unremarkable. Musculoskeletal: No acute osseous pathology. IMPRESSION: No acute cardiopulmonary disease/process.
[2023-09-30] MEDS ORDERED: NALOXONE 0.4 MG/ML 1 ML VIAL IV PRN (22:31)
[2023-09-30 23:11] LABS: Appearance,Urine Clear (Clear); Bilirubin,Urine Negative (Negative); Blood,Urine Negative (Negative); Color,Urine Yellow; Glucose,Urine (UA) Negative (Negative); Ketones,Urine Trace (Negative); Leukocyte Esterase,Urine Negative (Negative); Nitrite,Urine Negative (Negative); PH, Urine 5.5 (5.0-8.0); Protein,Urine Trace (Negative); Urobilinogen,Urine <2.0 mg/dL (<2.0)
--- NOTE | 2023-10-01 01:09 | P.HPIM ---
History of Present Illness H&P Date: 09/30/23 Chief Complaint: fall at home 78 year old male with peripheral neuropathy , GERD patient lives alone, he sustained a fall at home, he explains it was accidental as he tripped and fell on his side, without any head injury or passing out, however he could not get up immediately and had to crawl to a phone and call help. he was taken to [facility] where his workup was unremarkable . family suspects that he might have taken too much of his muscle relaxant, but also concerned regarding neurological problem. he left AMA from [facility] and presented to our facility for further neurological evaluation due to concerns of frequent falling and progressive weakness. CT of the head and neck done at [facility] showed no acute intracranial pathology patient denies cough, chest pain , SOB, fever, chills, nausea , vomiting, abd pain , changes in bowel or urinary habits, no focal neuro deficits. review of systems Pertinent positives as noted in HPI. All other systems were reviewed and are negative on exam Constitutional: No acute distress, conversant, pleasant Eyes: Anicteric sclerae, moist conjunctiva, Pupils equal round reactive to light ENMT: NC/AT Oropharynx clear, no erythema, or exudates Neck: Supple, no masses, or JVD No carotid bruits No thyromegaly Lungs: Clear to auscultation Clear to percussion Normal respiratory effort, no accessory muscle use Cardiovascular: Heart regular in rate and rhythm, No murmurs, gallops, or rubs No peripheral edema Abdominal: Soft Nontender, no guarding, rebound or rigidity Abdomen moving with respiration Normoactive bowel sounds Extremities: No digital cyanosis No clubbing Pedal pulses intact and symmetrical Radial pulses intact and symmetrical No calf tenderness Psychiatric: Alert and oriented to person, place and time Appropriate affect Neuro Muscles Strength 4/5 in all 4 extremities Sensation to light touch grossly present throughout Cranial nerves II-XII grossly intact Past Medical History Past Medical History: Cancer, GERD/Reflux, Prostate Disorder Additional Past Medical History / Comment(s): diverticulitis History of Any Multi-Drug Resistant Organisms: None Reported Past Surgical History: Joint Replacement Additional Past Surgical History / Comment(s): hip Past Psychological History: No Psychological Hx Reported Smoking Status: Current every day smoker Past Alcohol Use History: None Reported Past Drug Use History: None Reported Medications and Allergies Home Medications Medication Instructions Recorded Confirmed Type Pregabalin [Lyrica] 150 mg PO HS 09/26/23 02/24/24 History Ibuprofen [Motrin Ib] 200 mg PO TID PRN 09/30/23 09/30/23 History Unknown Bp Med 1 tab PO DIRECTED PRN 09/30/23 09/30/23 History methocarbamoL [Robaxin-750] 750 mg PO DIRECTED 09/30/23 09/30/23 History Allergies Allergy/AdvReac Type Severity Reaction Status Date / Time ceftriaxone [From Rocephin] Allergy Anaphylaxis Verified 09/30/23 21:09 ketorolac [From Toradol] Allergy Anaphylaxis Verified 09/30/23 21:09 Physical Exam Vitals: Vital Signs Temp Pulse Pulse Resp BP BP Pulse Ox 09/30/23 23:38 98.1 F 84 20 152/78 96 09/30/23 20:34 97.3 F L 97 18 137/51 96 Intake and Output 09/30/23 09/30/23 10/01/23 14:59 22:59 06:59 Other: Weight 83.915 kg Results CBC & Chem 7: 09/30/23 20:55 09/30/23 20:55 Labs: Abnormal Lab Results - Last 24 Hours (Table) 09/30/23 09/30/23 09/30/23 Range/Units 20:55 20:55 22:30 RBC 4.23 L (4.30-5.90) m/uL Chloride 111 H (98-107) mmol/L BUN 21 H (9-20) mg/dL Glucose 198 H (74-99) mg/dL Urine Protein Trace H (Negative) Urine Ketones Trace H (Negative) Assessment and Plan Assessment: 78 year old male with peripheral neuropathy , GERD , coming in after sustaining an accidental fall at home without head injury , no passing out, patient is not on any blood thinners or antiplatelets. denies any associated SOB chest pain or palpitations. he had his initial evaluation at [facility] which was unremarkable, then left AMA and presented to our facility for neuro evaluation I discussed the case with ED doc and I accepted the admission under observation for neurological evaluation with anticipated length of stay < 2 midnights accidental fall at home , recurrent falls. generalized weakness fall precautions PT / OT eval neuro checks CT head and neck done at [facility] no acute pathology monitor vital signs gentle IVF hydration with normal saline 130 cc per hour peripheral neuropathy resume lyrica home meds blood work unremarkable Hgb 13.4 , WBC 9.9 Na 142, K 3.8 , BUN 21, Cr 0.8 CXR no acute pathology EKG no acute ST changes full code DVT PPX heparin sc tid 5000 units protonix 40 mg po daily
[2023-10-01] MEDS: SODIUM CHLORIDE 0.9% 1,000 ML IV SCH (01:11)
[2023-10-01] MEDS: PREGABALIN 75 MG CAP PO SCH (01:11)
[2023-10-01] MEDS: methocarbamoL 750 MG TAB PO PRN (02:32)
[2023-10-01 07:21] LABS: Basophils # (A) 0.1 k/uL (0-0.2); Basophils % (A) 1 %; Eosinophils # (A) 0.6 k/uL (0-0.7); Eosinophils % (A) 7 %; HCT 37.7 % (39.0-53.0); HGB 12.8 gm/dL (13.0-17.5); Lymphocytes # (A) 2.3 k/uL (1.0-4.8); Lymphocytes % (A) 29 %; MCH 32.9 pg (25.0-35.0); MCHC 34.1 g/dL (31.0-37.0); MCV 96.7 fL (80.0-100.0); Mean Platelet Volume 7.8; Monocytes # (A) 0.5 k/uL (0-1.0); Monocytes % (A) 7 %; Neutrophils # (A) 4.3 k/uL (1.3-7.7); Neutrophils % (A) 54 %; Platelet Count 248 k/uL (150-450); RDW 13.6 % (11.5-15.5)
[2023-10-01] MEDS: HEPARIN SODIUM,PORCINE 5,000 UNIT/ML 1 ML VIAL SQ SCH (07:33)
[2023-10-01] MEDS: PANTOPRAZOLE 40 MG TABLET PO SCH (07:33)
[2023-10-01 08:06] LABS: African American GFR (CKD) >90 (>60 ml/min/1.73 sqM); Anion Gap 3 mmol/L; Blood Urea Nitrogen 20 mg/dL (9-20); Calcium 8.7 mg/dL (8.4-10.2); Carbon Dioxide 26 mmol/L (22-30); Chloride 112 mmol/L (98-107); Glucose 127 mg/dL (74-99); Non-African American GFR(CKD) 87 (>60 ml/min/1.73 sqM); Potassium 3.8 mmol/L (3.5-5.1); Sodium 141 mmol/L (137-145)
--- NOTE | 2023-10-01 10:40 | XR ---
EXAMINATION TYPE: XR cervical spine comp DATE OF EXAM: 10/01/2023 10:19 AM CLINICAL INDICATION:Male, 78 years old with history of shoulder, neck pain; PHH COMPARISON: None TECHNIQUE: The cervical spine was imaged in frontal, lateral, odontoid and bilateral oblique. FINDINGS: The osseous structures show normal alignment without evidence of an acute fracture. There are osteoph ytes noted throughout the cervical spine on the anterior and lateral aspects of the vertebral bodies. The intervertebral disk spaces are narrowed at multiple levels. Pedicles are intact. Soft tissues a re within normal limits. The odontoid appears intact. No femoral stenosis worse at C5-C7 bilaterally with at least mild to moderate. IMPRESSION: 1. No fracture or dislocation. 2. Moderate degenerative disc disease changes of the cervical spine.
--- NOTE | 2023-10-01 10:40 | XR ---
EXAMINATION TYPE: XR shoulder complete RT DATE OF EXAM: 10/01/2023 10:19 AM CLINICAL INDICATION:Male, 78 years old with history of shoulder, neck pain; PHH COMPARISON: None TECHNIQUE: XR shoulder complete RT; shoulder was examined in AP, internally rotated and scapular Y p rojections. FINDINGS: No evidence of acute osseous pathology, joint dislocation, or soft tissue swelling. Mild/moderate deg enerative change of the AC and glenohumeral joints. IMPRESSION: 1. No acute osseous pathology. 2. Mild/moderate degenerative change of the AC and glenohumeral joints.
--- NOTE | 2023-10-01 12:51 | P.PN ---
Subjective Progress Note Date: 10/01/23 Pt c/o right shoulder an dneck pain today. Pending PT/OT. Gen: In NAD, non-toxic HEENT: normocephalic, atraumatic, hearing acuity is intant, mucous membranes moist CVS: perfusing all extremities well, no pitting edema, Respiratory: symmetric chest expansion, no accessory muscle use, GI: soft, NTTP, ND, : no suprapubic tenderness, no CVA tenderness MSK/Derm: no rashes, cyanosis, tenderness to palpation of right shoulder Neuro: CN II-XII intact, no motor weakness, Psych: cooperative, euthymic mood, judgment and insight is intact Hospital course: 78 year old male with peripheral neuropathy , GERD presented after a fall at home. CT of the head and neck done at [facility] showed no acute intracranial pathology. Assessment/plan Accidental fall at home , recurrent falls. Generalized weakness fall precautions PT / OT eval neuro checks CT head and neck done at [facility] no acute pathology monitor vital signs gentle IVF hydration with normal saline 130 cc per hour Right shoulder x-ray ordered Cervical spine x-ray ordered Peripheral neuropathy resume lyrica home meds full code DVT PPX heparin sc tid 5000 units protonix 40 mg po daily Objective - Vital Signs Vital signs: Vital Signs Temp 98.7 F 10/01/23 08:00 Pulse 79 10/01/23 08:00 Resp 15 10/01/23 08:00 BP 158/87 10/01/23 08:00 Pulse Ox 95 10/01/23 08:00 FiO2 Intake & Output 09/30/23 10/01/23 10/01/23 18:59 06:59 18:59 Intake Total 1010 120 Output Total 250 Balance 1010 -130 Weight 83.915 kg Intake: Intake, IV Titration 650 Amount Sodium Chloride 0.9% 1, 650 000 ml @ 130 mls/hr IV . [id number] [facility] Rx#:[id number] Oral 360 120 Output: Urine 250 Other: # Voids 1 - Labs CBC & Chem 7: 10/01/23 06:23 10/01/23 06:23 Labs: Abnormal Lab Results - Last 24 Hours (Table) 09/30/23 09/30/23 09/30/23 Range/Units 20:55 20:55 22:30 RBC 4.23 L (4.30-5.90) m/uL Hgb (13.0-17.5) gm/dL Hct (39.0-53.0) % Chloride 111 H (98-107) mmol/L BUN 21 H (9-20) mg/dL Glucose 198 H (74-99) mg/dL Urine Protein Trace H (Negative) Urine Ketones Trace H (Negative) 10/01/23 10/01/23 Range/Units 06:23 06:23 RBC 3.90 L (4.30-5.90) m/uL Hgb 12.8 L (13.0-17.5) gm/dL Hct 37.7 L (39.0-53.0) % Chloride 112 H (98-107) mmol/L BUN (9-20) mg/dL Glucose 127 H (74-99) mg/dL Urine Protein (Negative) Urine Ketones (Negative)
--- NOTE | 2023-10-01 14:59 | P.CNNES ---
History of Present Illness Consult date: 10/01/23 Reason for Consult: Progressive dementia and confusion History of Present Illness: The patient is a 78-year-old male who was seen in neurologic consultation on October 01, 2023, in collaboration with Sheryl Rios, via teleneurology. History is obtained from review of the chart. It appears that the patient has been following, per report more frequently. Patient reportedly has a diagnosis of peripheral neuropathy and takes Lyrica. According to the emergency department note, patient's daughter is concerned that the patient may have taken an extra dose of his Flexeril, resulting in his most recent fall. The patient was reportedly unable to get up from the floor and crawled to the phone. 911 transported the patient to [facility] emergency department. Patient was reportedly worked up with a negative head CT. He left AMA, with family and drove to the emergency department at [facility]. Family wants him seen by a neuro logist. They feel that he is getting progressively worse regarding memory and ambulation. According to the patient's, he lost his balance while in the bathroom. He fell to the floor and was reportedly unable to get up. Patient has some difficulty relating the story. He denies hitting his head. He denies loss of consciousness. The patient's daughter presents to the room later during the examination. She says that he has been following frequently. He initially had a fall back in August 2022 at which time he broke his right femur. He underwent surgery and went to rehab. He was eventually discharged from rehab to her house. He has had several other falls since that time. The patient reportedly falls backward and falls forward. He reportedly had a fall about 4 weeks ago on his porch. At that time he injured his right shoulder. The patient's daughter also reports that because of the injury to his shoulder, the patient has not been able to brush his teeth and so therefore has developed a tooth infection. The patient has significant pain and is apparently taking Lyrica as well as Flexeril. The patient's daughter wonders if either of these medications are affecting the patient's memory and/or ability to ambulate. The patient reports a history of peripheral neuropathy for which she takes the Lyrica. He says this was prescribed to him, many years ago. He states that he takes Lyrica every 8 hours. He also reports taking Flexeril every 8 hours. In addition to these 2 medications, the patient takes Motrin every 6-8 hours as needed for pain. In reviewing the patient's listed home medications, it only reports Lyrica to be prescribed at once daily at bedtime. According to the patient's daughter, he has been having significant pain and that does not want to get out of the chair or bed, because of the significant pain. He is apparently not taking care of himself, because of the pain. The daughter reports the patient to have a shuffling gait. The patient himself denies headache, vision changes, difficulty with speech and swallowing. He does report numbness in his feet which is reportedly "longstanding". Patient also reports difficulty with balance. There is no history of diabetes mellitus. Past Medical History Past Medical History: Cancer, GERD/Reflux, Prostate Disorder Additional Past Medical History / Comment(s): diverticulitis, peripheral neuropathy History of Any Multi-Drug Resistant Organisms: None Reported Past Surgical History: Joint Replacement Additional Past Surgical History / Comment(s): hip Past Psychological History: No Psychological Hx Reported Smoking Status: Current every day smoker Past Alcohol Use History: None Reported Past Drug Use History: None Reported Medications and Allergies Home Medications Medication Instructions Recorded Confirmed Type Pregabalin [Lyrica] 150 mg PO HS 05/02/23 09/30/23 History Ibuprofen [Motrin Ib] 200 mg PO TID PRN 09/30/23 09/30/23 History Unknown Bp Med 1 tab PO DIRECTED PRN 09/30/23 09/30/23 History methocarbamoL [Robaxin-750] 750 mg PO DIRECTED 09/30/23 09/30/23 History Allergies Allergy/AdvReac Type Severity Reaction Status Date / Time ceftriaxone [From Rocephin] Allergy Anaphylaxis Verified 09/30/23 21:09 ketorolac [From Toradol] Allergy Anaphylaxis Verified 09/30/23 21:09 Physical Examination - Vital Signs Vital Signs: Vital Signs Temp Pulse Pulse Resp BP BP BP 10/01/23 08:00 98.7 F 79 15 158/87 10/01/23 01:15 98.0 F 84 18 156/84 09/30/23 23:38 98.1 F 84 20 152/78 09/30/23 20:34 97.3 F L 97 18 137/51 Pulse Ox 10/01/23 08:00 95 10/01/23 01:15 94 L 09/30/23 23:38 96 09/30/23 20:34 96 Intake and Output 09/30/23 10/01/23 10/01/23 22:59 06:59 14:59 Intake Total 1010 120 Output Total 250 Balance 1010 -130 Intake: Intake, IV Titration 650 Amount Sodium Chloride 0.9% 1, 650 000 ml @ 130 mls/hr IV . Q7H42M [facility] Rx#:[id number] Oral 360 120 Output: Urine 250 Other: # Voids 1 Weight 83.915 kg General: Patient is well-nourished, well-developed and in no acute distress HEENT: Head is atraumatic, normocephalic. Fundus not visualized. There is no scleral icterus. Mucous membranes are moist. Neck: Supple without carotid bruits Heart: Regular rate and rhythm Lungs: No shortness of breath or wheezing Extremities: Without edema Neurological examination Mental status: The patient is awake, alert and oriented to his name, date of , age, location and current year. The patient is not oriented to the current month. Her speech is clear. There is no dysarthria or aphasia. The patient's speech is slightly hypophonic. He has a normal blink rate. There is no facial masking. Cranial nerves: Pupils are equal at 3 mm, round and reactive to light. Visual nieto are full to confrontation. Extraocular movements are intact, with ocular dysmetria. There is no nystagmus. Facial sensation is intact. There is no facial asymmetry. Hearing is grossly intact. Uvula and palate are midline. Shoulder shrug is symmetric. Tongue protrudes midline. Motor: Strength is 5/5 throughout. Deltoid strength is not assessed secondary to right shoulder injury. Right hip flexor strength 4/5. Sensation: Grossly intact to light touch throughout. There is no extinction with double simultaneous stimulation. Proprioception is intact at the great toes bilaterally Coordination: Heczqn-nb-hkeh, rapid alternating movements and wosh-ht-tpir testing are intact. Deep tendon reflexes: 2+/4+ in the bilateral upper extremities. Lower extremity reflexes are absent. Plantar responses are flexor bilaterally. Gait: Not assessed Results - Laboratory Findings CBC and BMP: 10/01/23 06:23 10/01/23 06:23 Abnormal Lab Findings: Abnormal Labs 09/30/23 09/30/23 09/30/23 20:55 20:55 22:30 RBC 4.23 L Hgb Hct Chloride 111 H BUN 21 H Glucose 198 H Urine Protein Trace H Urine Ketones Trace H 10/01/23 10/01/23 06:23 06:23 RBC 3.90 L Hgb 12.8 L Hct 37.7 L Chloride 112 H BUN Glucose 127 H Urine Protein Urine Ketones Assessment and Plan Assessment: 1. Frequent falls in a 78-year-old male with history of peripheral neuropathy, reported shuffling gait and ataxia. The patient's neurological examination is not consistent with Parkinson's disease. There is no evidence of ataxia on examination. Etiology is possibly multifactorial: Medication effect, peripheral neuropathy, slight right leg weakness 2. Possible memory loss Plan: 1. Will check labs for causes of peripheral neuropathy 2. Physical therapy evaluation and treatment 3. Consider care management consultation regarding safe discharge plan 4. Daughter and patient were advised to follow-up with a neurologist, outpatient for further evaluation of neuropathy, memory and ataxia Time with Patient: Greater than 30 (60 minutes were spent caring for this patient today including, obtaining history, examining the patient, interacting with patient's daughter, reviewing imaging, chart documentation, labs, placing orders and creating this note)
[2023-10-01] MEDS ORDERED: PREGABALIN 75 MG CAP PO SCH (21:00)
[2023-10-01 22:56] LABS: Albumin 3.5 g/dL (3.8-4.9); Protein, Total 5.5 g/dL (6.2-8.2)
[2023-10-02] MEDS: ACETAMINOPHEN TAB 325 MG TAB PO PRN (00:38)
[2023-10-02] MEDS: CYANOCOBALAMIN 500 MCG TAB PO SCH (10:42)
[2023-10-02] MEDS: LOSARTAN 25 MG TAB PO SCH (12:36)
--- NOTE | 2023-10-02 13:01 | P.CNOR ---
History of Present Illness - [facility] Consult date: 10/02/23 Consult reason: joint pain (Right shoulder pain, right arm weakness) History of present illness: The patient is a 78-year-old male who presented to the emergency department for evaluation by neurology. He was admitted to [facility] after sustaining a fall at home. He states he fell 2 days ago. Orthopedics was consulted for further evaluation of his right shoulder pain. He states that he is very weak on the right side and unable to lift his arm up due to pain. The patient is also complaining of right elbow pain. X-rays of the right shoulder reveal glenohumeral and AC joint osteoarthritis and no acute fracture. He denies any numbness or tingling in his right arm or hand. He has ambulated with physical therapy in the hallway with use of a walker. He states mild pain in the right shoulder and elbow with using a walker. Review of Systems Constitutional: Denies chills, Denies fatigue, Denies fever Cardiovascular: Denies chest pain, Denies shortness of breath Respiratory: Denies cough Gastrointestinal: Denies diarrhea, Denies nausea, Denies vomiting Musculoskeletal: right: elbow pain, elbow stiffness, shoulder pain, shoulder stiffness Past Medical History Past Medical History: Cancer, GERD/Reflux, Prostate Disorder Additional Past Medical History / Comment(s): diverticulitis, peripheral neuropathy History of Any Multi-Drug Resistant Organisms: None Reported Past Surgical History: Joint Replacement Additional Past Surgical History / Comment(s): hip Past Psychological History: No Psychological Hx Reported Smoking Status: Current every day smoker Past Alcohol Use History: None Reported Past Drug Use History: None Reported Medications and Allergies Home Medications Medication Instructions Recorded Confirmed Type Pregabalin [Lyrica] 150 mg PO HS 05/02/23 09/30/23 History Ibuprofen [Motrin Ib] 200 mg PO TID PRN 09/30/23 09/30/23 History methocarbamoL [Robaxin-750] 750 mg PO DIRECTED 09/30/23 09/30/23 History Losartan [Cozaar] 25 mg PO DAILY PRN 10/02/23 10/02/23 History Allergies Allergy/AdvReac Type Severity Reaction Status Date / Time ceftriaxone [From Rocephin] Allergy Anaphylaxis Verified 09/30/23 21:09 ketorolac [From Toradol] Allergy Anaphylaxis Verified 09/30/23 21:09 Physical Examination The patient is a 78-year-old male in no acute distress. He is alert and oriented 2. Exam of the right upper extremity reveals no obvious open wounds or abrasions. His cervical spine is nontender. There is mild pain to palpation to the anterior shoulder. He is able to actively abduct the arm to around 90. Negative Neer and Hood's testing. There is mild pain to the radial head of the right elbow. Normal range of motion of the elbow with minimal pain. Neur ological and circulatory status is intact to the right upper extremity. Results X-ray of the right shoulder reveals AC joint and glenohumeral osteoarthritis. No acute fractures or dislocation noted. - Labs Labs: Abnormal Lab Results - Last 24 Hours (Table) 09/30/23 10/01/23 Range/Units 20:55 06:23 Hemoglobin A1c 6.7 H (<=6.0) % Total Protein (PEP) 5.5 L (6.2-8.2) g/dL Albumin (PEP) 3.5 L (3.8-4.9) g/dL H & H 09/30/23 10/01/23 Range/Units 20:55 06:23 Hgb 13.4 12.8 L (13.0-17.5) gm/dL Hct 40.3 37.7 L (39.0-53.0) % Result Diagrams: 10/01/23 06:23 10/01/23 06:23 Assessment and Plan (1) Primary osteoarthritis, right shoulder Current Visit: Yes Status: Acute Code(s): M19.011 - PRIMARY OSTEOARTHRITIS, RIGHT SHOULDER SNOMED Code(s): 187893150390923 (2) Right elbow pain Current Visit: Yes Status: Acute Code(s): M25.521 - PAIN IN RIGHT ELBOW SNOMED Code(s): 04403534 (3) Debility Current Visit: Yes Status: Acute Code(s): R53.81 - OTHER MALAISE SNOMED Code(s): 71383862 (4) Weakness Current Visit: Yes Status: Acute Code(s): R53.1 - WEAKNESS SNOMED Code(s): 03441568 Plan: The clinical and x-ray findings were discussed with the patient and nursing staff. The case was discussed with Dr. Dang. X-ray of the right elbow will also be ordered today to rule out fracture due to frequent falls. The patient will continue PT and OT and may start passive and active range of motion of the right shoulder as tolerated. Anti-inflammatories as needed. Ice and/or heat may be helpful as well. No surgical intervention is planned. If pain and weakness continues, the patient will need an MRI on outpatient basis. He may use a walker as tolerated. After the right elbow x-ray is obtained and is negative, we will sign off. He may follow-up with us or another orthopedic physician closer to him if his pain continues.
--- NOTE | 2023-10-02 13:29 | XR ---
EXAMINATION TYPE: XR elbow complete RT DATE OF EXAM: 10/02/2023 COMPARISON: None HISTORY: Pain TECHNIQUE: 3 view right elbow FINDINGS: Radius aligns normally with the humerus. Anterior fat pad is normal. No elevation of commercial loan administrator ior fat pad is evident which is normal. No acute fracture or dislocation is evident. Follow up exams can be performed 7-10 days from acute trauma for continued pain. IMPRESSION: 1. No acute osseous abnormality right elbow
--- NOTE | 2023-10-02 14:56 | P.PN ---
Subjective Progress Note Date: 10/02/23 Hospital course: Patient is a very pleasant 78-year-old male with a past medical history of hypertension, GERD, and peripheral neuropathy. He presented to the emergency department on 09/30/2023 secondary to recurrent falls at home. Patient was initially seen at [facility] and was supposed to be a transfer from [facility] to our facility for evaluation by neurology, however patient left AMA with his family and drove via private vehicle rather than EMS to our facility for evaluation. Patient denies having any loss of consciousness or hitting his head, but reports recurrent trip and falls and lives alone in his home. Patient underwent full evaluation upon arrival to the emergency department. Vital signs upon arrival show blood pressure 137/51,heart rate 97, respiratory rate 18, temp 97.3 F, and SpO2 of 96% on room air. EKG completed showing normal sinus rhythm at 97 bpm with no significant T wave or ST abnormalities showing no signs of acute ischemia. Chest x-ray negative for acute cardiopulmonary process. Patient was admitted under our services with consultation to neurology. X-ray right shoulder completed revealing mild to moderate degenerative changes of the AC and glenohumeral joints. X-ray cervical spine also completed negative for acute fracture or dislocation showing moderate degenerative disc disease changes throughout the cervical spine. Physical exam: Vital signs reviewed and stable. General: Nontoxic, no distress and appears stated age. Derm: Skin warm and dry, normal coloration for ethnicity. Head: Atraumatic, normocephalic and symmetric. Eyes: EOMs intact, no lid lag, and anicteric sclera Mouth: no lip lesions, mucus membranes moist Cardiovascular: regular rate and rhythm with normal S1S2, no murmur, positive posterior tibial pulses bilaterally, and cap refill < 2 seconds. Lungs: Respirations even, regular, and unlabored on room air. Lungs CTA bilaterally, no rhonchi, no rales, no wheezing, and no accessory muscle usage. Abdominal: soft, nontender to palpation, no guarding, no appreciable organomegaly Ext: ROM intact. No gross muscle atrophy, no edema, no contractures Neuro: Speech clear, face symmetrical and CN II-XII grossly intact with no noted focal neuro deficits Psych: Alert and oriented to person, place, time, and situation. Appropriate and pleasant affect. Assessment and Plan of Care: Recurrent falls at home Generalized weakness Right shoulder pain with reduced range of motion -X-ray right shoulder completed revealing mild to moderate degenerative changes of the AC and glenohumeral joints. -PT/OT evaluated, patient may require SNF placement -Neurology following, reviewed documentation in chart -Fall precautions to continue -Neurochecks every 4 hours -Continue daily medication regimen with Lyrica 150 mg nightly Hypertension -Continue daily medication regimen with losartan 25 mg daily GERD -Continue daily medication regimen with Protonix 40 mg daily. Data and imaging reviewed: Vital signs reviewed. Blood pressure hypertensive at 188/95, heart rate 83, respiratory rate 17, temp 98.2 F, and SpO2 of 96% on room air. Blood pressure improving to 155/82 after administration of losartan. CODE STATUS: Full code DVT prophylaxis: Heparin Anticipated discharge date: Likely 24 to [address]: [facility] Patient was seen independently by Nurse Pracitioner. This document was prepared using [employer]U dictation software. Please allow for errors in grab driver, while rare they do occur. Gm Castillo NP rendered care for this patient independently, reviewed the findings and plan as documented in the note above. I did not physically speak with or examine the patient on this date. Objective - Vital Signs Vital signs: Vital Signs Temp 98.2 F 10/02/23 07:48 Pulse 83 10/02/23 07:48 Resp 17 10/02/23 07:48 BP 188/95 10/02/23 07:48 Pulse Ox 96 10/02/23 07:48 FiO2 Intake & Output 10/01/23 10/02/23 10/02/23 18:59 06:59 18:59 Intake Total 720 Output Total 1350 450 Balance -630 -450 Intake: Oral 720 Output: Urine 1350 450 Other: Voiding Method Urinal Urinal # Voids 1 1 - Labs CBC & Chem 7: 10/01/23 06:23 10/01/23 06:23 Labs: Abnormal Lab Results - Last 24 Hours (Table) 09/30/23 10/01/23 Range/Units 20:55 06:23 Hemoglobin A1c 6.7 H (<=6.0) % Total Protein (PEP) 5.5 L (6.2-8.2) g/dL Albumin (PEP) 3.5 L (3.8-4.9) g/dL
--- NOTE | 2023-10-02 15:00 | P.PN ---
Subjective Progress Note Date: 10/02/23 I am seeing the patient for the first time during this admission. Please refer to Dr. Donis's note for further details. She is not a great historian but seems the patient has been having frequent falls. Seems she has neuropathy of bilateral feet and he stated going on for years. He denies any history of diabetes in the past. State he has chronic lower back pain but denies any radiation. He stated that the this fall he was in the bathroom he got up and he was doing well but he was trying to grab on the counter which was by the toilet when he got up and it looks like his hand slipped and unsure of there is water as a result he fell but he did not lose consciousness according to patient. Currently he is residing with his daughter. He denies of any headache any visual disturbance or any difficulty swallowing. Objective - Vital Signs Vital signs: Vital Signs Temp 98.3 F 10/02/23 14:00 Pulse 85 10/02/23 14:00 Resp 17 10/02/23 14:00 BP 155/82 10/02/23 14:00 Pulse Ox 97 10/02/23 14:00 FiO2 Intake & Output 10/01/23 10/02/23 10/02/23 18:59 06:59 18:59 Intake Total 720 240 Output Total 1350 450 600 Balance -630 -450 -360 Intake: Oral 720 240 Output: Urine 1350 450 600 Other: Voiding Method Urinal Urinal # Voids 1 1 - Exam General as the patient lying in bed and is not in acute distress Neuro- The patient is awake alert oriented to self, place and time. Patient is following simple commands. No aphasia or neglect. He is minimally slow responding. Damari are round equal and reactive to light. Visual nieto are full to confrontation. Extraocular movement is intact. Facial weakness. No dysarthria Motor: But I felt the right upper extremity is limited because of shoulder pain but he's able to lift all activities above gravity the right upper extremity is somewhat limited as stated above otherwise rest of the extremities are 5 out of 5 throughout. Sensation is normal to touch Reflexes was 1 positive throughout - Labs CBC & Chem 7: 10/01/23 06:23 10/01/23 06:23 Labs: Abnormal Lab Results - Last 24 Hours (Table) 02/24/24 02/25/24 Range/Units 20:55 06:23 Hemoglobin A1c 6.7 H (<=6.0) % Total Protein (PEP) 5.5 L (6.2-8.2) g/dL Albumin (PEP) 3.5 L (3.8-4.9) g/dL Assessment and Plan Assessment: 1. Frequent falls in a 78-year-old male with history of peripheral neuropathy, reported shuffling gait and ataxia. The patient's neurological examination is not consistent with Parkinson's disease. There is no evidence of ataxia on examination. Etiology is possibly multifactorial: Medication effect, peripheral neuropathy. Per Dr. Toro felt patient had right lower extremity weakness. Also patient has low normal vitamin B12. 2. Possible memory loss 3. Diabetes mellitus of 6.7 4.Low normal vitamin B-12: 328 Plan: TSH is 1.14, B12 328, folate is 8.60 I feel the vitamin B12 and folate although normal therefore I'll supplement the patient would vitamin B12 1000 g daily and folic acid 1 mg daily. Pending protein electrophoresis The patient has newly diagnosed diabetes mellitus defer the management to primary team. I ordered CT brain. Cervical spine x-rays reported as no fracture or dislocation. Moderate degenerative disc changes of the cervical spine. I recommend EMG with NCS of lowers first then uppers as outpatient. PT and OT are consulted I notified the patient that he needs to follow-up with a neurologist as an outpatient within 2 weeks and I recommended that he continues to use the walker at all times to avoid any falls. Also Dr. Donis recommended to daughter yesterday about "advised to follow-up with a neurologist, outpatient for further evaluation of neuropathy, memory and ataxia" We'll defer the rest of medical management to primary and other specialists Plan discussed with the patient nurse. If Workup above is negative the no further neurological workup. Time with Patient: Less than 30
[2023-10-02] MEDS: FOLIC ACID 1 MG TAB PO SCH (15:21)
--- NOTE | 2023-10-02 15:44 | CT ---
EXAMINATION TYPE: CT brain wo con DATE OF EXAM: 10/02/2023 COMPARISON: 05/02/2023 HISTORY: 78-year-old male with pain after fall 2 days ago TECHNIQUE: Examination was done in axial plane without intravenous contrast. Coronal and sagittal r econstructions performed. CT DLP: 1054.2 mGycm Automated exposure control for dose reduction was used. FINDINGS: Prominent patient motion degrades evaluation. Mild bifrontal cerebral cortical atrophy. Alignment for the extensive motion artifacts, no clear evidence for acute intracranial hemorrhage, ac [place] ischemic change, mass, mass effect, midline shift, or extra-axial fluid collection. No hydrocepha hayden. No effacement of cerebral sulci or basal subarachnoid cisterns. Britton-white matter differentiatio n is maintained. Visualized paranasal sinuses and mastoid air cells appear clear. Rightward nasal septal deviation. Or bits and globes are intact. IMPRESSION: Motion degraded exam. Allowing for this limitation, no definite acute intracranial abnormality seen.
[2023-10-02 17:48] LABS: Gamma Globulin 0.49 g/dL (0.70-1.50)
[2023-10-02 20:50] VITALS: RESP 16
[2023-10-03] MEDS: LIDOCAINE 4% PATCH TOPICAL SCH (13:13)
[2023-10-03] MEDS: KETOROLAC 15 MG/ML 1 ML VIAL IVP STA (13:18)
--- NOTE | 2023-10-03 14:16 | P.PN ---
Subjective Progress Note Date: 10/03/23 Hospital course: Patient is a very pleasant 78-year-old male with a past medical history of hypertension, GERD, and peripheral neuropathy. He presented to the emergency department on 09/30/2023 secondary to recurrent falls at home. Patient was initially seen at [facility] and was supposed to be a transfer from [facility] to our facility for evaluation by neurology, however patient left AMA with his family and drove via private vehicle rather than EMS to our facility for evaluation. Patient denies having any loss of consciousness or hitting his head, but reports recurrent trip and falls and lives alone in his home. Patient underwent full evaluation upon arrival to the emergency department. Vital signs upon arrival show blood pressure 137/51,heart rate 97, respiratory rate 18, temp 97.3 F, and SpO2 of 96% on room air. EKG completed showing normal sinus rhythm at 97 bpm with no significant T wave or ST abnormalities showing no signs of acute ischemia. Chest x-ray negative for acute cardiopulmonary process. Patient was admitted under our services with consultation to neurology. X-ray right shoulder completed revealing mild to moderate degenerative changes of the AC and glenohumeral joints. X-ray cervical spine also completed negative for acute fracture or dislocation showing moderate degenerative disc disease changes throughout the cervical spine. Patient was evaluated by physical therapy they are recommending SNF placement on discharge as patient with decreased range of motion and pain to right upper extremity making it difficult for him to ambulate with a walker safely. Physical exam: Patient seen and fully evaluated at bedside this morning. Patient reports moderate pain to his right shoulder. Orders to be placed for lidocaine patch, Toradol, and [place] as needed. Patient denies any other complaints at this time. Patient awaiting insurance authorization for placement in rehab upon discharge. Vital signs reviewed and stable. General: Nontoxic, no distress and appears stated age. Derm: Skin warm and dry, normal coloration for ethnicity. Head: Atraumatic, normocephalic and symmetric. Eyes: EOMs intact, no lid lag, and anicteric sclera Mouth: no lip lesions, mucus membranes moist Cardiovascular: regular rate and rhythm with normal S1S2, no murmur, positive posterior tibial pulses bilaterally, and cap refill < 2 seconds. Lungs: Respirations even, regular, and unlabored on room air. Lungs CTA bilaterally, no rhonchi, no rales, no wheezing, and no accessory muscle usage. Abdominal: soft, nontender to palpation, no guarding, no appreciable organomegaly Ext: ROM intact. No gross muscle atrophy, no edema, no contractures Neuro: Speech clear, face symmetrical and CN II-XII grossly intact with no noted focal neuro deficits Psych: Alert and oriented to person, place, time, and situation. Appropriate and pleasant affect. Assessment and Plan of Care: Recurrent falls at home Generalized weakness Right shoulder pain with reduced range of motion -X-ray right shoulder completed revealing mild to moderate degenerative changes of the AC and glenohumeral joints. -PT/OT evaluated, patient may require SNF placement -Neurology following, reviewed documentation in chart -Fall precautions to continue -Neurochecks every 4 hours -Continue daily medication regimen with Lyrica 150 mg nightly Hypertension -Continue daily medication regimen with losartan 25 mg daily GERD -Continue daily medication regimen with Protonix 40 mg daily. Data and imaging reviewed: Vital signs reviewed. Blood pressure 157/83, heart rate 80, respiratory rate 16, temp 98.4 F, and SpO2 of 96% on room air. CODE STATUS: Full code DVT prophylaxis: Heparin Anticipated discharge date: Pending insurance authorization [facility]ticip[facility], family [facility] Patient was seen independently by Nurse Pracitioner. This document was prepared using [employer] dictation software. Please allow for errors in competitive shopper, while rare they do occur. Patient seen independently by Anna BEAVER. I agree with the assessment and plan done by my colleague Anna BEAVER. Objective - Vital Signs Vital signs: Vital Signs Temp 98.4 F 10/03/23 07:45 Pulse 80 10/03/23 07:45 Resp 16 10/03/23 07:45 BP 157/83 10/03/23 07:45 Pulse Ox 96 10/03/23 07:45 FiO2 Intake & Output 10/02/23 10/03/23 10/03/23 18:59 06:59 18:59 Intake Total 240 Output Total 1000 1000 Balance -760 -1000 Intake: Oral 240 Output: Urine 1000 1000 Other: Voiding Method Urinal Urinal # Voids 4 - Labs CBC & Chem 7: 10/01/23 06:23 10/01/23 06:23 Labs: Abnormal Lab Results - Last 24 Hours (Table) 10/01/23 Range/Units 06:23 Gamma Globulins 0.49 L (0.70-1.50) g/dL
[2023-10-03] MEDS: HYDROcodone/APAP 5-325MG 1 EACH TAB PO PRN (16:45)
--- NOTE | 2023-10-03 17:59 | P.PN ---
Subjective Progress Note Date: 10/03/23 I am following-up with patient and he feels about the same. Denies any new neurological issues. Objective - Vital Signs Vital signs: Vital Signs Temp 98.8 F 10/03/23 11:37 Pulse 92 10/03/23 11:37 Resp 16 10/03/23 11:37 BP 152/97 10/03/23 11:37 Pulse Ox 93 L 10/03/23 11:37 FiO2 Intake & Output 10/02/23 10/03/23 10/03/23 18:59 06:59 18:59 Intake Total 240 Output Total 1000 1000 150 Balance -760 -1000 -150 Intake: Oral 240 Output: Urine 1000 1000 150 Other: Voiding Method Urinal Urinal # Voids 4 - Exam General as the patient lying in bed and is not in acute distress Neuro- The patient is awake alert oriented to self, place and time. Patient is following simple commands. No aphasia or neglect. He is minimally slow responding. Damari are round equal and reactive to light. Visual nieto are full to confrontation. Extraocular movement is intact. Facial weakness. No dysarthria Motor: But I felt the right upper extremity is limited because of shoulder pain but he's able to lift all activities above gravity the right upper extremity is somewhat limited as stated above otherwise rest of the extremities are 5 out of 5 throughout. Sensation is normal to touch Reflexes was 1 positive throughout - Labs CBC & Chem 7: 10/01/23 06:23 10/01/23 06:23 Assessment and Plan Assessment: 1. Frequent falls in a 78-year-old male with history of peripheral neuropathy, reported shuffling gait and ataxia. The patient's neurological examination is not consistent with Parkinson's disease. There is no evidence of ataxia on examination. Etiology is possibly multifactorial: Medication effect, peripheral neuropathy. Per Dr. Toro felt patient had right lower extremity weakness. Also patient has low normal vitamin B12. 2. Possible memory loss 3. Diabetes mellitus of 6.7 4.Low normal vitamin B-12: 328 Plan: TSH is 1.14, B12 328, folate is 8.60 I feel the vitamin B12 and folate are low normal, therefore I'll supplement the patient would vitamin B12 1000 g daily and folic acid 1 mg daily. protein electrophoresis: No monoclonal paraprotein. The patient has newly diagnosed diabetes mellitus defer the management to primary team. CT brain: It is reported as motion degraded exam. Allowing for this limitation no definite of acute intracranial abnormality seen. I personally reviewed the CT and I agree with the interpretation. Cervical spine x-rays reported as no fracture or dislocation. Moderate degenerative disc changes of the cervical spine. I recommend EMG with NCS of lowers first then uppers as outpatient. PT and OT are consulted I notified the patient that he needs to follow-up with a neurologist as an outpatient within 2 weeks and I recommended that he continues to use the walker at all times to avoid any falls. Also Dr. Donis recommended to daughter yesterday about "advised to follow-up with a neurologist, outpatient for further evaluation of neuropathy, memory and ataxia" We'll defer the rest of medical management to primary and other specialists Plan discussed with the patient. There is no further neurological workup. Will sign off. Please reconsult if needed. Time with Patient: Less than 30
[2023-10-04] MEDS: BUPIVACAINE (PF) 0.25% 10 ML VIAL INTRAARTIC ONE (08:44)
[2023-10-04] MEDS: methylPREDNISolone ACETATE 80 MG/ML 1 ML VIAL INTRAARTIC ONE (08:44)
--- NOTE | 2023-10-04 09:55 | P.PN ---
Subjective Progress Note Date: 10/04/23 Principal diagnosis: Right shoulder pain Rafael was reevaluated today at the request of the patient's family. They are requesting a possible cortisone injection in the right shoulder due to ongoing pain that is hindering his ambulation with a walker. This morning, the patient states his shoulder pain is better. He is unable lift his arm still. He is now stating that there was numbness to this upper and lower arm but it is better today. He did have a cortisone injection by his PCP a couple of months in the right shoulder but the shoulder pain was worse after the injection. The patient is scheduled for an MRI on the right shoulder soon in [place]. I spoke with the patient's daughter today via telephone and she provided more history of his right shoulder pain as well. Objective - Vital Signs Vital signs: Vital Signs Temp 100.7 F H 10/04/23 07:25 Pulse 106 H 10/04/23 07:25 Resp 16 10/04/23 07:25 BP 130/82 10/04/23 07:25 Pulse Ox 91 L 10/04/23 07:25 FiO2 Intake & Output 10/03/23 10/04/23 10/04/23 18:59 06:59 18:59 Output Total 750 400 Balance -750 -400 Output: Urine 750 400 Other: Voiding Method Urinal Toilet Urinal # Voids 3 - Exam The patient is a 78-year-old male in no acute distress. He is alert and oriented 3. Exam of the right upper extremity reveals no obvious open wounds or abrasions. His cervical spine is nontender. There is mild pain to palpation to the anterior shoulder. He is unable to abduct or forward flex the arm without assistance of the left hand. His has full passive ROM of the shoulder without significant pain. Negative Neer and Hood's testing. The deltoid does not appear to be firing. There is improving pain to the radial head of the right elbow. Normal range of motion of the elbow with minimal pain. Neurological and circulatory status is intact to the right upper extremity. Radial nerve function is intact. - Labs CBC & Chem 7: 10/01/23 06:23 10/01/23 06:23 Assessment and Plan (1) Primary osteoarthritis, right shoulder Current Visit: Yes Status: Acute Code(s): M19.011 - PRIMARY OSTEOARTHRITIS, RIGHT SHOULDER SNOMED Code(s): 942979549207019 (2) Right elbow pain Current Visit: Yes Status: Acute Code(s): M25.521 - PAIN IN RIGHT ELBOW SNOMED Code(s): 18803907 (3) Debility Current Visit: Yes Status: Acute Code(s): R53.81 - OTHER MALAISE SNOMED Code(s): 07031456 (4) Weakness Current Visit: Yes Status: Acute Code(s): R53.1 - WEAKNESS SNOMED Code(s): 78004584 Plan: The clinical and x-ray findings were discussed with the patient and nursing staff. Care and history were discussed with the daughter today. The numbness and pain in the shoulder appears better today. However, he is still very weak with abduction and forward flexion with deltoid dysfunction. There is a concern of a brachial plexus or other neurological issue. The case discussed with neurology and they recommend outpatient EMG testing. An MRI of the right shoulder was ordered but we were unable to obtain while inpatient since he will not be scheduled shoulder surgery emergently on this hospital visit. The patient's family would like to try an injection in the right shoulder today to try to help with his pain. It was discussed with the daughter and patient that the injection might not improve his functional status in regards to the shoulder if there is a neurological component to the shoulder issues. He keep the outpatient MRI appointment. I have injected 2 cc of 0.25% Marcaine and 1 cc of Depo-Medrol 80mg/1 cc into the right subacromial space. The patient is aware there will be gradual relief of symptoms. Patient may ice the area if it becomes painful tonight. We discuss ed risks of a cortisone injection including temporary blood sugar elevation and permanent hypopigmentation of the skin. We also discussed that the affected area may be numb for a couple of hours following the injection and likely more sore for a couple of days before the anti-inflammatory effect is noticeable. The patient tolerated it well. The patient will continue PT and OT and may start passive and active range of motion of the right shoulder as tolerated. Anti-inflammatories as needed. Ice and/or heat may be helpful as well. No surgical intervention is planned. He may use a walker as tolerated. He may follow-up with us or another orthopedic physician closer to him if his pain continues.
--- NOTE | 2023-10-04 11:04 | CDI ---
Documentation Clarification Form Date: 10/04/2023 10:39:55 AM From: Sagrario Aquino RN, CCDS Email: [email or web address] Admit Date: 09/30/2023 10:32:00 PM Patient Name: Rafael Nguyễn Visit Number: [id number] Discharge Date: ATTENTION: The Clinical Documentation Specialists (CDI) and [facility] Coding Staff appreciate your assistance in clarifying documentation. Please respond to the clarification below the line at the bottom and electronically sign. The CDI & [facility] Coding staff will review the response and follow-up if needed. Please note: Queries are made part of the Legal Health Record. If you have any questions, please contact the author of this message via ITS. Dr. Jackie Jarvis Your patient has the documented symptom of weakness in the ED, H&P and progress notes. Additional clarification regarding the etiology/cause of this symptom is requested. History/Risk Factors: peripheral neuropathy, GERD, lives alone. Presented for further neurological evaluation due to concerns of frequent falling and progressive weakness. Clinical Indicators: ED: "Family were concerned because falls have been more frequent, as well as confusion and possible worsening dementia." H&P: "accidental fall at home, recurrent falls. Generalized weakness." 10/01 Neurology consult: "Progressive dementia and confusion. Slight right leg weakness." 10/02 Ortho consult: "Primary osteoarthritis, right shoulder. Debility. Weakness. No surgical intervention is planned - we will sign off." 10/03 Neurology: "Frequent falls. Etiology is possibly multifactorial: medication effect, peripheral neuropathy. Per Dr. Donis, felt patient had right lower extremity weakness." 10/02 PT: "Patient ambulated with short step gait with rolling walker. Patient had unsteadiness during ambulation. Recommend NEREIDA to increase balance and functional mobility." 10/02 OT: "Recommend sub acute rehab due to high risk of falls, elevated pain perception, limited functional endurance and assistance required for ADL's." Treatment: Fall precautions, PT/OT - see above. Neuro assessment Q4H Is there a corresponding diagnosis/etiology for this symptom of weakness? [ ] Age related physical debility [ ] Age related cognitive decline [ ] Peripheral neuropathy [ ] Drug -induced myopathy [X ] Unable to determine [ ] Other, please specify MTDD
[2023-10-04] MEDS: BUPIVACAINE (PF) 0.25% 30 ML VIAL INTRAARTIC ONE (13:31)
[2023-10-04] MEDS: methylPREDNISolone ACETATE 80 MG/ML 1 ML VIAL INTRAARTIC STA (13:31)
[2023-10-04 14:18] VITALS: BP 115/76; PULSE 102; TEMP 99.2
--- NOTE | 2023-10-04 14:22 | P.PN ---
Subjective Progress Note Date: 10/04/23 Hospital course: Patient is a very pleasant 78-year-old male with a past medical history of hypertension, GERD, and peripheral neuropathy. He presented to the emergency department on 09/30/2023 secondary to recurrent falls at home. Patient was initially seen at [facility] and was supposed to be a transfer from [facility] to our facility for evaluation by neurology, however patient left AMA with his family and drove via private vehicle rather than EMS to our facility for evaluation. Patient denies having any loss of consciousness or hitting his head, but reports recurrent trip and falls and lives alone in his home. Patient underwent full evaluation upon arrival to the emergency department. Vital signs upon arrival show blood pressure 137/51,heart rate 97, respiratory rate 18, temp 97.3 F, and SpO2 of 96% on room air. EKG completed showing normal sinus rhythm at 97 bpm with no significant T wave or ST abnormalities showing no signs of acute ischemia. Chest x-ray negative for acute cardiopulmonary process. Patient was admitted under our services with consultation to neurology. X-ray right shoulder completed revealing mild to moderate degenerative changes of the AC and glenohumeral joints. X-ray cervical spine also completed negative for acute fracture or dislocation showing moderate degenerative disc disease changes throughout the cervical spine. Patient was evaluated by physical therapy they are recommending SNF placement on discharge as patient with decreased range of motion and pain to right upper extremity making it difficult for him to ambulate with a walker safely. Physical exam: Patient seen and fully evaluated at bedside this morning. Patient reports continued moderate pain to his right shoulder. Patient denies any other complaints at this time. Patient awaiting insurance authorization for placement in [facility] upon discharge. Vital signs reviewed and stable. General: Nontoxic, no distress and appears stated age. Derm: Skin warm and dry, normal coloration for ethnicity. Head: Atraumatic, normocephalic and symmetric. Eyes: EOMs intact, no lid lag, and anicteric sclera Mouth: no lip lesions, mucus membranes moist Cardiovascular: regular rate and rhythm with normal S1S2, no murmur, positive posterior tibial pulses bilaterally, and cap refill < 2 seconds. Lungs: Respirations even, regular, and unlabored on room air. Lungs CTA bilaterally, no rhonchi, no rales, no wheezing, and no accessory muscle usage. Abdominal: soft, nontender to palpation, no guarding, no appreciable organomegaly Ext: No gross muscle atrophy, no edema, no contractures. Movement and sensation intact. Range of motion of right upper extremity limited secondary to patient's pain. Neuro: Speech clear, face symmetrical and CN II-XII grossly intact with no noted focal neuro deficits Psych: Alert and oriented to person, place, time, and situation. Appropriate and pleasant affect. Assessment and Plan of Care: Recurrent falls at home Generalized weakness Right shoulder pain with reduced range of motion -X-ray right shoulder completed revealing mild to moderate degenerative changes of the AC and glenohumeral joints. -PT/OT evaluated, patient may require SNF placement -Neurology following, reviewed documentation in chart -Fall precautions to continue -Neurochecks every 4 hours -Continue daily medication regimen with Lyrica 150 mg nightly Hypertension -Continue daily medication regimen with losartan 25 mg daily GERD -Continue daily medication regimen with Protonix 40 mg daily. Data and imaging reviewed: Vital signs reviewed. Blood pressure 115/76, heart rate 102, respiratory rate 16, temp 99.2 F, and SpO2 of 93% on room air. CODE STATUS: Full code DVT prophylaxis: Heparin Anticipated discharge date: Pending insurance authorization [facility]ticipated [facility] place[facility], family [facility] Patient was seen independently by Nurse Pracitioner. This document was prepared using [employer] dictation software. Please allow for errors in timber cutter, while rare they do occur. Patient seen independently by Anna BEAVER. I agree with the assessment and plan done by my colleague Anna BEAVER. Objective - Vital Signs Vital signs: Vital Signs Temp 100.7 F H 10/04/23 07:25 Pulse 106 H 10/04/23 07:25 Resp 16 10/04/23 07:25 BP 130/82 10/04/23 07:25 Pulse Ox 91 L 10/04/23 07:25 FiO2 Intake & Output 10/03/23 10/04/23 10/04/23 18:59 06:59 18:59 Output Total 750 400 Balance -750 -400 Output: Urine 750 400 Other: Voiding Method Urinal Toilet Urinal # Voids 3 - Labs CBC & Chem 7: 10/01/23 06:23 10/01/23 06:23
--- NOTE | 2023-10-04 15:03 | P.DS ---
Providers Date of admission: 09/30/23 22:32 Expected date of discharge: 10/04/23 Attending physician: Jackie Jarvis MD Consults: 09/30/23 22:31 Consult Physician Routine Consulting Provider: Marva Donis Consult Reason/Comments: eval for progressive dementia, confusion Do you want consulting provider notified?: Yes 10/02/23 10:59 Consult Physician Routine Consulting Provider: Steve Woodson Consult Reason/Comments: R shoulder pain & RUE weakness (Glenohumoral/AC joint degenerative changes) Do you want consulting provider notified?: Yes Primary care physician: Stated None Hospital Course: Discharge Diagnosis: Recurrent falls at home, resulting in right shoulder injury/pain and inability to independently complete activities of daily living. Generalized weakness Right shoulder pain with reduced range of motion. X-ray right shoulder completed revealing mild to moderate degenerative changes of the AC and glenohumeral joints. Patient was evaluated by orthopedic surgery and received injection of 2 cc of 0.25% Marcaine and 1 cc of Depo-Medrol 80mg/1 cc into the right subacromial space. The patient is being discharged to custodial facility, [facility] for rehab where he will continue with PT and OT and may start passive and active range of motion of the right shoulder as tolerated. Anti- inflammatories as needed. Ice and/or heat may be helpful as well. No surgical intervention is planned at this time but patient will need to follow-up outpatient for EMG testing after discharge from rehab. Hypertension. Continue daily medication regimen with losartan 25 mg daily GERD. Continue daily medication regimen with Protonix 40 mg daily. Hospital Course: Patient is a very pleasant 78-year-old male with a past medical history of hypertension, GERD, and peripheral neuropathy. He presented to the emergency department on 09/30/2023 secondary to recurrent falls at home. Patient was initially seen at [facility] and was supposed to be a transfer from [facility] to our facility for evaluation by neurology, however patient left AMA with his family and drove via private vehicle rather than EMS to our facility for evaluation. Patient denies having any loss of consciousness or hitting his head, but reports recurrent trip and falls and lives alone in his home. Patient underwent full evaluation upon arrival to the emergency department. Vital signs upon arrival show blood pressure 137/51,heart rate 97, respiratory rate 18, temp 97.3 F, and SpO2 of 96% on room air. EKG completed showing normal sinus rhythm at 97 bpm with no significant T wave or ST abnormalities showing no signs of acute ischemia. Chest x-ray negative for acute cardiopulmonary process. Patient was admitted under our services with consultation to neurology. X-ray right shoulder completed revealing mild to moderate degenerative changes of the AC and glenohumeral joints. X-ray cervical spine also completed negative for acute fracture or dislocation showing moderate degenerative disc disease changes throughout the cervical spine. Patient was evaluated by physical therapy they are recommending SNF placement on discharge as patient with decreased range of motion and pain to right upper extremity making it difficult for him to ambulate with a walker safely. Physical exam: Vital signs reviewed and stable. General: Nontoxic, no distress and appears stated age. Derm: Skin warm and dry, normal coloration for ethnicity. Head: Atraumatic, normocephalic and symmetric. Eyes: EOMs intact, no lid lag, and anicteric sclera Mouth: no lip lesions, mucus membranes moist Cardiovascular: regular rate and rhythm with normal S1S2, no murmur, positive posterior tibial pulses bilaterally, and cap refill < 2 seconds. Lungs: Respirations even, regular, and unlabored on room air. Lungs CTA bilaterally, no rhonchi, no rales, no wheezing, and no accessory muscle usage. Abdominal: soft, nontender to palpation, no guarding, no appreciable organomegaly Ext: No gross muscle atrophy, no edema, no contractures. Movement and sensation intact. Range of motion of right upper extremity limited secondary to patient's pain. Neuro: Speech clear, face symmetrical and CN II-XII grossly intact with no noted focal neuro deficits Psych: Alert and oriented to person, place, time, and situation. Appropriate and pleasant affect. A total of 31 minutes of time were spent preparing this complex discharge summary. Pt was discharged on 10/04/2023 at 2:59 PM. Patient was seen independently by Nurse Practitioner. This document was prepared using [employer] dictation software. Please allow for errors in control clerk while rare they do occur. Patient seen independently by Anna BEAVER. I agree with the assessment and plan done by my colleague Anna BEAVER. Patient Condition at Discharge: Stable Plan - Discharge Summary New Discharge Prescriptions: New Folic Acid 1 mg PO DAILY tab Acetaminophen Tab [Tylenol] 650 mg PO Q6HR PRN tab PRN Reason: Mild Pain Or Fever > 100.5 Cyanocobalamin [Vitamin B-12] 1,000 mcg PO DAILY tab Lidocaine 4% Patch 1 patch TOPICAL DAILY #0 patch HYDROcodone/APAP 5-325MG [[place] 5-325] 1 each PO Q4HR PRN #12 tab PRN Reason: Moderate Pain (Scale 4 To 6) Continue Losartan [Cozaar] 25 mg PO DAILY PRN PRN Reason: high bp Pregabalin [Lyrica] 150 mg PO HS 3 Days #3 cap methocarbamoL [Robaxin-750] 750 mg PO DIRECTED Ibuprofen [Motrin Ib] 200 mg PO TID PRN PRN Reason: Pain Discharge Medication List Ibuprofen [Motrin Ib] 200 mg PO TID PRN 09/30/23 [History] methocarbamoL [Robaxin-750] 750 mg PO DIRECTED 09/30/23 [History] Losartan [Cozaar] 25 mg PO DAILY PRN 10/02/23 [History] Acetaminophen Tab [Tylenol] 650 mg PO Q6HR PRN tab 10/04/23 [Rx] Cyanocobalamin [Vitamin B-12] 1,000 mcg PO DAILY tab 10/04/23 [Rx] Folic Acid 1 mg PO DAILY tab 10/04/23 [Rx] HYDROcodone/APAP 5-325MG [[place] 5-325] 1 each PO Q4HR PRN #12 tab 10/04/23 [Rx] Lidocaine 4% Patch 1 patch TOPICAL DAILY #0 patch 10/04/23 [Rx] Pregabalin [Lyrica] 150 mg PO HS 3 Days #3 cap 10/04/23 [Rx] Follow up Appointment(s)/Referral(s): Selene Dang DO [Doctor of Osteopathic Medicine] - 1 Week William Mota III, MD [STAFF PHYSICIAN] - 1 Week [facility] [NON-STAFF] - 1 Week Activity/Diet/Wound Care/Special Instructions: Activity: As tolerated with walker. Requires minimal assistance secondary to decreased range of motion and pain in right shoulder. Diet: Heart healthy and carb consistent diet. Avoid salts, or foods with hidden salts such as canned or boxed foods and frozen dinners. Extra salt makes your heart work harder and traps the fluid in your body for longer. Special Instructions: Take all of your medications as directed and remember to keep all of your doctor's appointments and follow-up as needed. Patient received injection of 2 cc of 0.25% Marcaine and 1 cc of Depo-Medrol 80mg/1 cc into the right subacromial space by orthopedic surgery team. The patient is aware there will be gradual relief of symptoms. Patient may ice the area if it becomes painful tonight. The patient will continue PT and OT and may start passive and active range of motion of the right shoulder as tolerated. Anti-inflammatories as needed. Ice and/or heat may be helpful as well. No surgical intervention is planned at this time but patient will need to follow-up outpatient for EMG testing after discharge from rehab. Thank you for allowing us to participate in your care, it was truly a pleasure having you for our patient!!! Discharge Disposition: TRANSFER TO SNF/ECF
== END 2023-10-04 16:37 ==
LOC: EC 20:29 → INTOOBSV 22:32 → 5NMEDONC 22:32 → UNDODISIN 10-04 16:37
PROVIDERS: ADMIT Internal Medicine; ATTEND Internal Medicine
DX: S49.91XA Unspecified injury of right shoulder and upper arm, initial encounter (principal); W01.0XXA Fall on same level from slipping, tripping and stumbling without subsequent striking against object, initial encounter; Y92.009 Unspecified place in unspecified non-institutional (private) residence as the place of occurrence of the external cause; R29.6 Repeated falls; R53.1 Weakness; R41.0 Disorientation, unspecified; M19.011 Primary osteoarthritis, right shoulder; K21.9 Gastro-esophageal reflux disease without esophagitis; I10 Essential (primary) hypertension; E11.42 Type 2 diabetes mellitus with diabetic polyneuropathy; F17.200 Nicotine dependence, unspecified, uncomplicated; Z79.899 Other long term (current) drug therapy; Z88.1 Allergy status to other antibiotic agents; Z88.6 Allergy status to analgesic agent
CPT/HCPCS: 96361 ×2; 96372 ×4; 96374; 99285; 36415; 97530; 97162; 97166; 80048 ×2; 84443; 82607; 82746; 85025; 85027; 81003; 84165; 82306; 83036; 72050; 73030; 73080; 71046; 70450; G0378 ×5; J1040; J1644 ×4; J1885; J0665

== ENCOUNTER → 2023-12-23 | Outpatient (CLI) | payer MEDICARE ==
--- NOTE | 2023-12-28 09:03 | MR ---
EXAMINATION TYPE: MR Prostate wo/w con DATE OF EXAM: 12/23/2023 10:30 AM COMPARISON: 03/23/2022. CLINICAL INDICATION:Male, 78 years old with history of C61 MALIGNANT NEOPLASM OF PROSTATE; Prostate c ancer TECHNIQUE: Multi-planar, multi-sequence imaging of the pelvis is performed prior to and following the uncomplicated administration of bolus intravenous gadolinium. CONTRAST: 8 Gadavist Interpretive Criteria: PI-RADS v2.1 SERUM PSA: 1.88 on 11/2023. SURGICAL PATHOLOGY: Not available during dictation. FINDINGS: Prostatic dimensions: 6.8 x 5.4 x 4.9 cm. Ellipsoid Volume:94.21 (PSA density=0.02 ng/mL/mL) CENTRAL GLAND (Central and Transition Zones/CZ+TZ): Multiple bilateral, heterogenous appearing hypertrophic stromal nodules, without suspicious lesion. M edian lobe hypertrophy with protrusion into the base of the bladder. (PI-RADS 2) PERIPHERAL ZONE (PZ): Abnormality seen on prior is no longer visualized in the left posterior peripheral zone., No evidence of masslike abnormality, or localized perfusional hypervascularity, to further suggest a focus of cl inically significant prostate cancer. (PI-RADS 2) SEMINAL VESICLES (SV): Symmetric and unremarkable. PERIPROSTATIC TISSUES: Unremarkable. LYMPH NODES: No enlarged pelvic lymph node. REMAINING PELVIS: Bladder wall is within normal limits given distention. No abnormal free or organized intrapelvic fluid collection. No pathologic bowel dilation or mural thickening. Colonic diverticula are present. No hernia visualized OSSEOUS STRUCTURES: No suspicious osseous abnormality. Right hip metal susceptibility artifact. Left hip high T2 signal l esion possibly representing enchondroma unchanged from 03/23/2022. IMPRESSION: 1. No specific features for high-risk prostate cancer. Maximum PI-RADS score: 2. Prior suspicious are a seen on 03/23/2022 is no longer visualized. 2. Substantial BPH, estimated gland volume 94.21 mL. 3. No suspicious osseous lesion. No lymphadenopathy. No evidence of prostate adenocarcinoma involving the periprostatic tissues.
== END | disposition home or self-care (01) ==
LOC: RADMRIMAIN 09:00
PROVIDERS: ATTEND Urology
DX: C61 Malignant neoplasm of prostate (principal); N40.0 Benign prostatic hyperplasia without lower urinary tract symptoms
CPT/HCPCS: 72197; A9585